=== PATIENT | female | born 1955 ===

== ENCOUNTER 2020-03-07 14:24 | Outpatient (REF) | payer OTHER, SELFPAY | END 2020-03-07 14:25 | disposition home or self-care (01) | LOC: HO.LAB 14:24 | PROVIDERS: Visit Provider Internal Medicine | DX: Z20.828 Contact with and (suspected) exposure to other viral communicable diseases (principal) | CPT/HCPCS: 87635 ==

== ENCOUNTER 2020-04-08 08:48 | Outpatient (REF) | payer OTHER, SELFPAY ==
[2020-04-08 09:18] LABS: MANUAL DIFF FLAG NO
[2020-04-08 09:19] LABS: Basophils Percent Auto 0.9 % (0-2); Eosinophils Absolute Auto 0.1 X10*3/uL (0.0-0.4); Eosinophils Percent Auto 1.2 % (0-4); Hemoglobin 12.5 g/dl (12.0-16.0); Imm Gran Abs Auto 0.01 X10*3/uL (0.00-0.03); Imm Gran Pct Auto 0.2 % (0.0-0.4); Lymphocytes Percent Auto 45.9 % (20-40); Mean Corpuscular HGB Conc 32.9 g/dl (31.0-35.0); Mean Corpuscular Hemoglobin 30.3 pg (27.0-33.0); Mean Platelet Volume 10.6 fL (9.4-12.3); Monocytes Absolute Auto 0.3 X10*3/uL (0.1-1.2); Neutrophils Percent Auto 45.8 % (45-73); Platelet Count 280 X10*3/uL (160-400); Red Blood Count 4.13 X10*6/uL (4.20-5.50); Red Cell Distribution Width 13.4 % (11.0-16.0); White Blood Count 4.3 X10*3/uL (4.8-10.8)
[2020-04-08 09:45] LABS: Alanine Aminotransferase 27 U/L (0-31); Albumin Level 4.4 g/dL (3.5-5.0); Alkaline Phosphatase 103 U/L (39-117); Anion Gap 13 (12-20); Aspartate Amino Transferase 23 U/L (5-31); Bilirubin Total 0.3 mg/dL (0.0-1.0); Blood Urea Nitrogen 19 mg/dL (9-16); Carbon Dioxide 24 mmol/L (22-29); Chloride 105 mmol/L (96-108); Cholesterol 226 mg/dL; Estimated Glomerular Filt Rate 55; Glucose Fasting 109 mg/dL (60-99); HDL Cholesterol 57 mg/dL; LDL Cholesterol Calculated 158 mg/dl; Potassium 4.6 mmol/l (3.3-5.1); Sodium 137 mmol/L (135-145); Total Protein 7.8 g/dL (6.5-8.0); Triglycerides 59 mg/dL
== END 2020-04-08 08:49 | disposition home or self-care (01) ==
LOC: HO.LAB 08:48
PROVIDERS: Visit Provider Internal Medicine
DX: E78.00 Pure hypercholesterolemia, unspecified (principal); D70.9 Neutropenia, unspecified
CPT/HCPCS: 36415; 80053; 80061; 85025

== ENCOUNTER 2020-07-21 11:56 | Outpatient (REF) | payer OTHER, SELFPAY ==
--- NOTE | ~2020-07-21 | MM_ITS ---
EXAMINATION: MM SCREENING DIGITAL BREAST TOMOSYNTHESIS, BILATERAL CLINICAL INFORMATION: Screening. Asymptomatic. The lifetime risk of breast cancer based on the Tyrer-Cuzick Model is 8%. COMPARISON: Mammography: 01/08/2019, 10/04/2017, 07/06/2016 TECHNIQUE: Digital breast tomosynthesis is performed in both the craniocaudal and mediolateral oblique views along with computer-aided detection (CAD). Synthesized 2D images are generated from the tomosynthesis. FINDINGS: There are scattered areas of fibroglandular density (ACR BI-RADS breast composition Category b). There are no significant masses, abnormal calcifications, or other abnormalities. Background stromal densities are similar to prior studies. No developing density. The axilla and skin contours are unremarkable. No significant changes. MM/MM tomosynthesis screening BI IMPRESSION: No mammographic evidence of malignancy. ASSESSMENT: BI-RADS 1: Negative RECOMMENDATION: Routine annual mammography screening. This patient's information was entered into a reminder system with a target due date for their next mammogram.
== END 2020-07-21 11:57 | disposition home or self-care (01) ==
LOC: HO.MAMMO 11:56
PROVIDERS: PCP Internal Medicine; Visit Provider Internal Medicine
DX: Z12.31 Encounter for screening mammogram for malignant neoplasm of breast (principal)
CPT/HCPCS: 77063; 77067

== ENCOUNTER 2021-01-23 09:23 | Outpatient (REF) | payer OTHER, SELFPAY | END 2021-01-23 09:24 | disposition home or self-care (01) | LOC: HO.LAB 09:23 | PROVIDERS: PCP Internal Medicine; Visit Provider Internal Medicine | DX: Z20.822 Contact with and (suspected) exposure to COVID-19 (principal) | CPT/HCPCS: C9803; U0003; U0005 ==

== ENCOUNTER 2021-05-30 08:10 | Outpatient (REF) | payer MEDICARE, MEDICAID, SELFPAY ==
[2021-05-30 09:16] LABS: Alanine Aminotransferase 23 U/L (0-31); Albumin Level 4.3 g/dL (3.5-5.0); Alkaline Phosphatase 96 U/L (39-117); Anion Gap 13 (12-20); Aspartate Amino Transferase 19 U/L (5-31); Bilirubin Total 0.4 mg/dL (0.0-1.0); Blood Urea Nitrogen 11 mg/dL (9-16); Calcium 10.1 mg/dL (8.4-10.2); Carbon Dioxide 26 mmol/L (22-29); Chloride 108 mmol/L (96-108); Cholesterol 241 mg/dL; Estimated Glomerular Filt Rate 49; Glucose Fasting 125 mg/dL (60-99); HDL Cholesterol 61 mg/dL; LDL Cholesterol Calculated 164 mg/dl; Potassium 5.1 mmol/L (3.3-5.1); Sodium 142 mmol/L (135-145); Total Protein 7.8 g/dL (6.5-8.0); Triglycerides 84 mg/dL
== END 2021-05-30 08:11 | disposition home or self-care (01) ==
LOC: HO.LAB 08:10
PROVIDERS: PCP Internal Medicine; Visit Provider Internal Medicine
DX: E78.5 Hyperlipidemia, unspecified (principal)
CPT/HCPCS: 36415; 80053; 80061

== ENCOUNTER → 2021-08-28 13:19 | Outpatient (BNVA) | payer MEDICARE, MEDICAID, SELFPAY | PROVIDERS: PCP Internal Medicine; Referring Provider Internal Medicine; Visit Provider Nurse Practitioner Family | DX: Z12.11 Encounter for screening for malignant neoplasm of colon (principal); K59.00 Constipation, unspecified | CPT/HCPCS: 99202 ==

== ENCOUNTER 2021-09-04 13:57 | Outpatient (REF) | payer MEDICARE, MEDICAID, SELFPAY ==
--- NOTE | ~2021-09-04 | MM_ITS ---
EXAMINATION: MM SCREENING DIGITAL BREAST TOMOSYNTHESIS, BILATERAL CLINICAL INFORMATION: Screening. Asymptomatic. Remote prior reduction mammoplasty, 2008. The lifetime risk of breast cancer based on the Tyrer-Cuzick Model is 5%. COMPARISON: Mammography: 07/21/2020, 01/08/2019, 10/04/2017 TECHNIQUE: Digital breast tomosynthesis is performed in both the craniocaudal and mediolateral oblique views along with computer-aided detection (CAD). Synthesized 2D images are generated from the tomosynthesis. FINDINGS: There are scattered areas of fibroglandular density (ACR BI-RADS breast composition Category b). Fine fibronodular parenchymal pattern is stable. There is no developing density. No significant mass or architectural abnormality or abnormal calcifications. The axilla and skin contours are unremarkable. No significant changes. MM/MM tomosynthesis screening BI IMPRESSION: No mammographic evidence of malignancy. ASSESSMENT: BI-RADS 1: Negative RECOMMENDATION: Routine annual mammography screening. This patient's information was entered into a reminder system with a target due date for their next mammogram.
--- NOTE | ~2021-09-04 | MM_ITS ---
EXAMINATION: BONE DENSITOMETRY CLINICAL INDICATION: Menopause. COMPARISON: None (current study represents initial baseline exam). TECHNIQUE: Using a Eventials DXA System (software version: 13.1) manufactured by [employer], dual-energy x-ray absorptiometry was performed of the lumbar spine and left hip. The images are of good technical quality. Summary results are attached. FINDINGS: AP SPINE L1-L2 (excluding L3 and L4): The data of L1-L4 has been changed to exclude the L3 and L4 vertebral bodies because degenerative changes at these levels may cause overestimation of the lumbar spine density. BMD 0.958 g/cm2, Z-score 0.8, T-score -1.7, osteopenia. LEFT FEMUR, NECK: BMD 0.615 g/cm2, Z-score -2.0, T-score -3.0, osteoporosis. LEFT FEMUR, TOTAL: BMD 0.729 g/cm2, Z-score -1.5, T-score -2.2, osteopenia. IDENTIFIED RISK FACTORS: Early menopause, hysterectomy, bilateral oophorectomy, secondary osteoporosis. HISTORY OF FRACTURE: None listed. MEDICATIONS: Vitamin D. MM/XR DEXA axial skeleton IMPRESSION: 1. DIAGNOSIS: Osteoporosis based on the lowest T-score value of -3.0 in the femoral neck applying World Health Organization criteria. 2. 10-YEAR FRACTURE RISK PREDICTION, FRAX: According to the guidelines, FRAX calculation should only be performed on patients in the osteopenia bone density category. Therefore, FRAX was not performed on this patient. 3. Treatment Recommendations: NOF guidelines recommend consideration for treatment in postmenopausal women and men age 50 and older presenting with the following: -A hip or vertebral (clinical or morphometric) fracture. -T-score less than or equal to -2.5 at the femoral neck or spine after appropriate evaluation to exclude secondary causes. -Low bone mass at the hip or spine and a 10-year fracture probability by FRAX of greater than or equal to 3% for hip fracture or greater than or equal to 20% for major osteoporotic fracture based on the [place] adapted WHO algorithm. 4. Other Recommendations: All treatment decisions require clinical judgment and consideration of individual patient factors, including patient preferences, comorbidities, previous drug use, risk factors not captured in the FRAX model (e.g. frailty, falls, vitamin D deficiency, increased bone turnover, interval significant decline in bone density) and possible under or overestimation of fracture risk by FRAX. Additional medical evaluation for secondary cause of low bone mineral density may be appropriate. FUTURE SCAN RECOMMENDATION: People with diagnosed cases of osteoporosis or at high risk for fracture should have regular bone mineral density tests. For patients eligible for Medicare, routine testing is allowed once every 2 years. The testing frequency can be increased to one year for patients who have rapidly progressing disease, those who are receiving or discontinuing medical therapy to restore bone mass, or have additional risk factors.
== END 2021-09-04 13:58 | disposition home or self-care (01) ==
LOC: HO.MAMMO 13:57
PROVIDERS: PCP Internal Medicine; Visit Provider Internal Medicine
DX: Z12.31 Encounter for screening mammogram for malignant neoplasm of breast (principal); Z13.820 Encounter for screening for osteoporosis; Z78.0 Asymptomatic menopausal state; M81.0 Age-related osteoporosis without current pathological fracture
CPT/HCPCS: 77063; 77067; 77080

== ENCOUNTER 2021-11-12 09:08 | Outpatient (REF) | payer MEDICARE, MEDICAID, SELFPAY ==
[2021-11-12 10:15] LABS: Alanine Aminotransferase 20 U/L (0-31); Albumin Level 4.1 g/dL (3.5-5.0); Alkaline Phosphatase 87 U/L (39-117); Anion Gap 13 (12-20); Aspartate Amino Transferase 19 U/L (5-31); Bilirubin Total 0.4 mg/dL (0.0-1.0); Blood Urea Nitrogen 17 mg/dL (9-16); Calcium 9.3 mg/dL (8.4-10.2); Carbon Dioxide 24 mmol/L (22-29); Chloride 109 mmol/L (96-108); Cholesterol 223 mg/dL; Estimated Glomerular Filt Rate 42; Glucose Fasting 111 mg/dL (60-99); HDL Cholesterol 51 mg/dL; LDL Cholesterol Calculated 160 mg/dl; Potassium 4.8 mmol/L (3.3-5.1); Sodium 141 mmol/L (135-145); Total Protein 7.3 g/dL (6.5-8.0); Triglycerides 61 mg/dL
== END 2021-11-12 09:09 | disposition home or self-care (01) ==
LOC: HO.LAB 09:08
PROVIDERS: PCP Internal Medicine; Visit Provider Internal Medicine
DX: E78.5 Hyperlipidemia, unspecified (principal)
CPT/HCPCS: 36415; 80053; 80061

== ENCOUNTER 2021-12-10 10:51 | Day surgery (SDC) | payer MEDICARE, MEDICAID, SELFPAY ==
[2021-12-04 14:36] VITALS: BMI 36.1
--- NOTE | 2021-12-07 10:33 | HO.ANESPROP2 ---
Documented by User: Alisa Arauz NP 12/07/21 10:33 HPI - Anesthesia Eval Consult details Narrative: 66yo F for Colonoscopy PMFSH Active Problems Active Problems: All Active Problems (Updated 11/13/21 @ 16:14 by Trudi Carlos MD) BMI 36.0-36.9,adult (Acute) Osteoporosis (Acute) Physical exam (Acute) Postmenopausal (Acute) Screen for colon cancer (Acute) Shortness of breath (Acute) Venous (peripheral) insufficiency (Acute) Impaired glucose tolerance (Acute) Dyslipidemia (Acute) Past Medical History Medical History (Updated 11/13/21 @ 16:14 by Trudi Carlos MD) Dyslipidemia Impaired glucose tolerance Osteoporosis Physical exam Postmenopausal Screen for colon cancer Shortness of breath Venous (peripheral) insufficiency Family History Family History Father Diabetes Mother Diabetes Hypertension Paternal Grandmother Breast cancer Paternal Aunt Breast cancer Brother Primary cancer of bone marrow Surgical History Surgical History (Updated 12/04/21 @ 14:18 by Linda Victoria RN) History of bilateral breast reduction surgery History of total abdominal hysterectomy and bilateral salpingo-oophorectomy Hx of colonoscopy Social History Social History Housing: Apartment Alcohol intake: current Alcohol intake frequency: holidays/special occasions only Alcohol type: wine Patient Tobacco Use Status: Former Tobacco user Quit Date: >20 yr ago Tobacco use type: Cigarette e-Cigarette/Vaping Use: Never Used Second Hand Smoke Exposure: No Use of substances other than those prescribed or required for medical reasons: No Have you been hit, kicked, punched, or otherwise hurt by someone within the past year? If so, by whom?: No Are you DNR?: No Advance Directives: No Advance Directives Information Provided: Yes (brochure mailed) Advance Directives on File: No Recently lost weight without trying: No Eating poorly because of decreased appetite: No Nutrition Risks: No Nutritional Risk service: No Current occupational status: employed Current occupational exposures/hazards: No Cognitive needs: No Hearing needs: No Vision needs: No Meds Allergies Allergy/AdvReac Type Severity Reaction Status Date / Time No Known Allergies Allergy Mild NKA Verified 11/13/21 15:59 Exam Exam Date and Time: December 07, 2021 1033 Height,Weight and Vital Signs: Height 5 ft 1 in Weight 86.636 kg Assessment and Plan Assessment Anesthesia Assessment: Chart Reviewed Documented by User: Soraida López MD 12/10/21 11:43 PMFSH Past Medical History Medical History (Updated 11/13/21 @ 16:14 by Trudi Carlos MD) Dyslipidemia Impaired glucose tolerance Osteoporosis Physical exam Postmenopausal Screen for colon cancer Shortness of breath Venous (peripheral) insufficiency Family History Family History Father Diabetes Mother Diabetes Hypertension Paternal Grandmother Breast cancer Paternal Aunt Breast cancer Brother Primary cancer of bone marrow Family history of problems with anesthesia: No Surgical History Surgical History (Updated 12/04/21 @ 14:18 by Linda Victoria RN) History of bilateral breast reduction surgery History of total abdominal hysterectomy and bilateral salpingo-oophorectomy Hx of colonoscopy History of Problems with Anesthesia: No Social History Social History Housing: Apartment Alcohol intake: current Alcohol intake frequency: holidays/special occasions only Alcohol type: wine Patient Tobacco Use Status: Former Tobacco user Quit Date: >20 yr ago Tobacco use type: Cigarette e-Cigarette/Vaping Use: Never Used Second Hand Smoke Exposure: No Use of substances other than those prescribed or required for medical reasons: No Have you been hit, kicked, punched, or otherwise hurt by someone within the past year? If so, by whom?: No Are you DNR?: No Advance Directives: No Advance Directives Information Provided: Yes (brochure mailed) Advance Directives on File: No Recently lost weight without trying: No Eating poorly because of decreased appetite: No Nutrition Risks: No Nutritional Risk service: No Current occupational status: employed Current occupational exposures/hazards: No Cognitive needs: No Hearing needs: No Vision needs: No Meds Allergies Allergy/AdvReac Type Severity Reaction Status Date / Time No Known Allergies Allergy Mild NKA Verified 11/13/21 15:59 Exam Airway Mallampati Class: II (Implant top front on left) TM Dist: >3cm Neck ROM: Full Heart: rrr Lungs: cta Assessment and Plan Assessment Anesthesia Assessment: Anesthesia Plan Discussed and Chart Reviewed Final Anesthetic Review Family History of Problems with Anesthesia: No History of Problems with Anesthesia: No NPO: Yes ASA Class: II Final Preanesthetic Review: No Changes in Pt Med Stat, Meds/Allgs Chart Reviewed and Consent Obtained/Reviewed Patient Risk: Intermediate Procedure Risk: Intermediate Anesthetic Plan Anesthetic Plan: MAC: Disposition: Standard PACU
[2021-12-10 11:52] VITALS: BP 141/76; PULSE 90; RESP 18; TEMP 36.7; O2SAT 99
[2021-12-10] MEDS: Lactated Ringers 1,000 ML 50 ML IVCONT (11:54)
--- NOTE | 2021-12-10 12:00 | MHC.SHP ---
Pre-Procedural Eval Section A Date of Service: 12/10/21 The patient is an INPATIENT: No The History & Physical has been completed within 30 days and I have reviewed it.: No Section B Chief Complaint: screening Details of Present Illness: Colon cancer screening Relevant Family History (Specify if Yes): No Relevant Social History: Tobacco Use (Past smoker) Present Medications: see Short Stay Collaborative assessment Medical History: Significant History (Dyslipidemia Impaired glucose tolerance Physical exam Postmenopausal Screen for colon cancer Shortness of breath Venous (peripheral) insufficiency) History of Previous Operations: Relevant previous surgery/procedure and date(s) (History of bilateral breast reduction surgery History of total abdominal hysterectomy and bilateral salpingo-oophorectomy Hx of colonoscopy) Allergies: Allergies Allergy/AdvReac Type Severity Reaction Status Date / Time No Known Allergies Allergy Mild NKA Verified 11/13/21 15:59 Review of Systems Sugical H&P ROS: Negative: Constitution, Cardiovascular, Respiratory and Gastrointestinal Exam Surgical H&P Exam: Normal: Heart, Normal: Lungs, Normal: Extremities and Normal: Abdomen Plan Diagnosis/Plan: Unchanged I have reviewed the history and physical and performed a pertinent physical examination on my patient. No changes have occurred unless specified.
--- NOTE | 2021-12-10 12:52 | PM.OP ---
Brief Operative Note Date of Service: 12/10/21 Pre-op diagnosis: Colon cancer screen Post-op diagnosis: other (Colon polyps, cecal AVM, diverticulosis, hemorrhoids, ) Procedure: COLONOSCOPY TILL CECUM WITH BIOPSIES AND SNARE POLYPECTOMY Consent: Indications for the procedure and potential complications of bleeding, perforation, reaction to medications and missed diagnosis were discussed with the patient and informed consent was obtained. Instrument: Olympus PCF H 190 L variable stiffness pediatric colonoscope Monitoring: Vital signs and clinical assessment, intermittent blood pressure monitoring, continuous EKG monitoring, Pulse oximetry and Carbon Dioxide monitoring were done throughout the procedure. Colon withdrawl time was 22 minutes. Procedure: The patient was placed in the left lateral decubitis position and pre-procedure medications were administered. After a digital rectal examination of the ano-rectum, the video colonoscope was inserted into the rectum and advanced through the colon to the cecum. The colonoscope was slowly withdrawn in a retrograde panoramic fashion and the colon mucosa was carefully examined including a retroflexed view of the rectum. Findings and interventions are described below. Procedure Difficulty: Without difficulty Findings: Terminal Ileum: Not evaluated Cecum: A 4-5 mm sessile polyp removed with a cold bx. A 1.5 cms non-bleeding AVM Ascending Colon: A 1.8 to 2 cms sessile polyp overlying a fold in the proximal AC removed with a hot snare. Transverse Colon: Normal Descending Colon: Moderate diverticulosis Sigmoid Colon: A 5-6 mm sessile polyp removed with a cold bx. Moderate diverticulosis Rectum: Normal Ano-rectum: Small internal hemorrhoids Colon preparation: Good Impression and Post Procedure Diagnosis: Colonoscopy Findings: Two small and one medium sized polyps removed Moderate diverticulosis seen in the left colon Small hemorrhoids on retroflexed exam. Plan: Await pathology results Patient has an appointment on 12/24/21 in the GI Clinic with Isela Rivera FNP-BC. Repeat Colonoscopy interval based on path results - in 3-5 years if polyps are adenomatous and 10 years if polyps are hyperplastic. Above findings were reviewed with the patient and colon polyps and diverticulosis handouts were given in the discharge area Surgeon: Greg Whtie MD Anesthesia: MAC (Dr Menard) Was an Supervisor Vacuum Metalizing used for this Procedure?: Yes Supervisor Vacuum Metalizing: Yohana Cohen Estimated blood loss (mL): 0 Pathology: other (A. Ascending colon polyp B. cecal polyp C. sigmoid polyp) Condition: stable Disposition: PACU
[2021-12-10 12:53] VITALS: BP 107/98; PULSE 84; RESP 16; TEMP 36.8; O2SAT 96
--- NOTE | 2021-12-10 12:56 | W.PM.OPN ---
Operative Note Operative Note Date of Service: 12/10/21 Narrative: Pre-op diagnosis: Colon cancer screen Post-op diagnosis:?other (Colon polyps, cecal AVM, diverticulosis, hemorrhoids) Procedure: COLONOSCOPY TILL CECUM WITH BIOPSIES AND SNARE POLYPECTOMY Consent: Indications for the procedure and potential complications of bleeding, perforation, reaction to medications and missed diagnosis were discussed with the patient and informed consent was obtained. Instrument: Olympus PCF H 190 L variable stiffness pediatric colonoscope Monitoring: Vital signs and clinical assessment, intermittent blood pressure monitoring, continuous EKG monitoring, Pulse oximetry and Carbon Dioxide monitoring were done throughout the procedure. Colon withdrawl time was 22 minutes. Procedure: The patient was placed in the left lateral decubitis position and pre-procedure medications were administered. After a digital rectal examination of the ano-rectum, the video colonoscope was inserted into the rectum and advanced through the colon to the cecum. The colonoscope was slowly withdrawn in a retrograde panoramic fashion and the colon mucosa was carefully examined including a retroflexed view of the rectum. Findings and interventions are described below. Procedure Difficulty: Without difficulty Findings: Terminal Ileum: Not evaluated Cecum:? A 4-5 mm sessile polyp removed with a cold bx. A 1.5 cms non-bleeding AVM Ascending Colon:? A 1.8 to 2 cms sessile polyp overlying a fold in the proximal AC removed with a hot snare. Transverse Colon:? Normal Descending Colon:? Moderate diverticulosis Sigmoid Colon:? A 5-6 mm sessile polyp removed with a cold bx. Moderate diverticulosis Rectum:? Normal Ano-rectum:? Small internal hemorrhoids Colon preparation:? Good? Impression and Post Procedure Diagnosis: Colonoscopy Findings: Two small and one medium sized polyps removed Moderate diverticulosis seen in the left colon Small hemorrhoids on retroflexed exam. Plan: Await pathology results Patient has an appointment on 12/24/21 in the GI Clinic with ? Isela Rivera, [facility]. Repeat Colonoscopy interval based on path results - in 3-5 years if polyps are adenomatous and 10 years if polyps are hyperplastic. Above findings were reviewed with the patient and colon polyps and diverticulosis handouts were given in the discharge area Surgeon: Greg White MD Anesthesia:?MAC (Dr Menard) Was an Learning And Development Director used for this Procedure?:?Yes Learning And Development Director:?Yohana Cohen Estimated blood loss (mL):?0 Pathology:?other (A. Ascending colon polyp? B. cecal polyp? C. sigmoid polyp) Condition:?stable Disposition:?PACU
[2021-12-10 13:08] VITALS: BP 121/70; PULSE 75; RESP 16; O2SAT 98
[2021-12-10 13:23] VITALS: BP 134/70; PULSE 78; RESP 16; O2SAT 96
[2021-12-10 13:38] VITALS: BP 135/68; PULSE 78; RESP 16; TEMP 36.8; O2SAT 97
== END 2021-12-10 14:21 | disposition home or self-care (01) ==
PROVIDERS: PCP Internal Medicine; Visit Provider Internal Medicine Gastroenterology
PROC: 0DJD8ZZ Inspection of Lower Intestinal Tract, Via Natural or Artificial Opening Endoscopic (ICD-10-PCS; CPT 45378; principal; 2021-12-10 12:00)
DX: Z12.11 Encounter for screening for malignant neoplasm of colon (principal); D12.0 Benign neoplasm of cecum; D12.2 Benign neoplasm of ascending colon; D12.5 Benign neoplasm of sigmoid colon; K57.30 Diverticulosis of large intestine without perforation or abscess without bleeding; K64.8 Other hemorrhoids; K55.20 Angiodysplasia of colon without hemorrhage; K59.00 Constipation, unspecified; I87.2 Venous insufficiency (chronic) (peripheral); E78.5 Hyperlipidemia, unspecified; R73.02 Impaired glucose tolerance (oral); R06.02 Shortness of breath; Z87.891 Personal history of nicotine dependence
CPT/HCPCS: 45385; 45380; 88305

== ENCOUNTER → 2021-12-24 08:04 | Outpatient (BNVA) | payer MEDICARE, MEDICAID, SELFPAY | PROVIDERS: PCP Internal Medicine; Referring Provider Internal Medicine; Visit Provider Nurse Practitioner Family | DX: D36.9 Benign neoplasm, unspecified site (principal); K57.90 Diverticulosis of intestine, part unspecified, without perforation or abscess without bleeding; K59.00 Constipation, unspecified; Z98.890 Other specified postprocedural states | CPT/HCPCS: 99212 ==

== ENCOUNTER 2022-01-15 10:01 | Outpatient (REF) | payer MEDICARE, MEDICAID, SELFPAY ==
--- NOTE | ~2022-01-15 | US_ITS ---
EXAMINATION: US VENOUS ULTRASOUND WITH DOPPLER LOWER EXTREMITY, LEFT CLINICAL INFORMATION: Pain in the left leg COMPARISON: None TECHNIQUE: Ultrasound of the deep veins is performed from the hip to the calf with compression sonography and color and pulse Doppler assessment. Spectral analysis with color-flow imaging is performed. FINDINGS: There is normal venous compression and respiratory variation and augmented flow. The visualized left common femoral vein, superficial femoral vein, profunda femoral vein, popliteal vein, and the trifurcation region shows no evidence of deep venous thrombosis. There is no significant popliteal fossa cyst. If the patient's symptoms persist, followup ultrasound in 5 days 7 days might be of value to exclude proximal propagation from a non-visualized calf vein. US/US venous duplex LE IMPRESSION: No DVT demonstrated in the left lower extremity.
--- NOTE | ~2022-01-15 | XR_ITS ---
EXAMINATION: XR KNEE, RIGHT XR KNEE, LEFT CLINICAL INFORMATION: Bilateral knee pain. COMPARISON: 07/21/2007 of the left knee. TECHNIQUE: 3 views of each knee. FINDINGS: RIGHT KNEE: There is no evidence of acute fracture or dislocation of the right knee. No right knee effusion is appreciated. There is some spurring without significant joint space narrowing about the medial joint space. There is prominent spurring about the patellofemoral joint with what appears to be some mild narrowing of the lateral facet. LEFT KNEE: Views of the left knee demonstrate spurring of the medial joint space compartment without significant joint space narrowing. There is some spurring at the patellofemoral joint without significant joint space narrowing appreciated. There is a small amount of suprapatellar fluid present. XR/XR knee LT 3V IMPRESSION: Degenerative change of the knees bilaterally which appear to be mild about the medial joint space compartments and more significant at the patellofemoral joints.
--- NOTE | ~2022-01-15 | XR_ITS ---
EXAMINATION: XR KNEE, RIGHT XR KNEE, LEFT CLINICAL INFORMATION: Bilateral knee pain. COMPARISON: 07/21/2007 of the left knee. TECHNIQUE: 3 views of each knee. FINDINGS: RIGHT KNEE: There is no evidence of acute fracture or dislocation of the right knee. No right knee effusion is appreciated. There is some spurring without significant joint space narrowing about the medial joint space. There is prominent spurring about the patellofemoral joint with what appears to be some mild narrowing of the lateral facet. LEFT KNEE: Views of the left knee demonstrate spurring of the medial joint space compartment without significant joint space narrowing. There is some spurring at the patellofemoral joint without significant joint space narrowing appreciated. There is a small amount of suprapatellar fluid present. XR/XR knee RT 3V IMPRESSION: Degenerative change of the knees bilaterally which appear to be mild about the medial joint space compartments and more significant at the patellofemoral joints.
--- NOTE | ~2022-01-15 | XR_ITS ---
EXAMINATION: XR LUMBOSACRAL SPINE CLINICAL INFORMATION: Low back pain. COMPARISON: None TECHNIQUE: Three views of the lumbosacral spine. FINDINGS: There are 5 nonrib bearing lumbar vertebrae. No acute fracture, spondylolisthesis, or spondylolysis is identified. There is some disc space narrowing seen at the L4-L5 and L5-S1 levels. There is sclerosis with some degree of facet arthropathy seen at the L5-S1 level bilaterally and to a milder extent involving the right L4-L5 facets. Sacroiliac joints appear unremarkable. There is mild anterior spurring at the L3-L4 levels. XR/XR lumbar spine 2-3V IMPRESSION: Lumbar spondylosis without evidence of acute fracture, spondylolisthesis, or spondylolysis.
== END 2022-01-15 10:02 | disposition home or self-care (01) ==
LOC: HO.US 10:01
PROVIDERS: PCP Internal Medicine; Visit Provider Internal Medicine
DX: M25.562 Pain in left knee (principal); M79.605 Pain in left leg; M25.561 Pain in right knee; M54.50 Low back pain, unspecified
CPT/HCPCS: 72100; 73562; 93971

== ENCOUNTER → 2022-02-28 15:54 | Outpatient (BNVA) | payer MEDICARE, MEDICAID, SELFPAY | PROVIDERS: PCP Internal Medicine; Visit Provider Internal Medicine Endocrinology, Diabetes & Metabolism | DX: M81.0 Age-related osteoporosis without current pathological fracture (principal) | CPT/HCPCS: 99202 ==

== ENCOUNTER 2022-03-14 09:17 | Outpatient (REF) | payer MEDICARE, MEDICAID, SELFPAY ==
[2022-03-14 10:31] LABS: Phosphorus 2.8 mg/dL (2.7-4.5)
[2022-03-14 10:57] LABS: Free T4 (Free Thyroxine) 1.06 ng/dL (0.71-1.85); Thyroid Stimulating Hormone 1.53 uIU/mL (0.32-4.0); Vitamin D 25-OH Total 31.5 ng/mL (>30)
[2022-03-14 11:22] LABS: Creatinine, mg/dL 88.64
[2022-03-14 12:10] LABS: Creatinine, 24Hr Urine 1.2 G/Day (1.0-2.0); Total Volume 24 Hour Urine 1325 mL
[2022-03-16 17:23] LABS: Calcium, 24 Hr Urine 205 mg/24 h; Calcium/Creatinine Ratio 165 mg/g creat (30-275); Creatinine 24Hr Urine 1.25 g/24 h (0.50-2.15)
[2022-03-19 18:11] LABS: Prot Elec - Albumin 3.9 g/dL (3.8-4.8); Prot Elec - Alpha1 0.3 g/dL (0.2-0.3); Prot Elec - Alpha2 0.7 g/dL (0.5-0.9); Prot Elec - Beta 1 0.4 g/dL (0.4-0.6); Prot Elec - Beta 2 0.4 g/dL (0.2-0.5); Prot Elec - Gamma 1.3 g/dL (0.8-1.7); Prot Elec - Total Protein 7.1 g/dL (6.1-8.1)
== END 2022-03-14 09:18 | disposition home or self-care (01) ==
LOC: HO.LAB 09:17
PROVIDERS: PCP Internal Medicine; Visit Provider Internal Medicine Endocrinology, Diabetes & Metabolism
DX: M81.0 Age-related osteoporosis without current pathological fracture (principal)
CPT/HCPCS: 82306; 82340; 82570; 84100; 84165; 84439; 84443; 86335

== ENCOUNTER 2022-07-03 08:07 | Outpatient (REF) | payer MEDICARE, MEDICAID, SELFPAY ==
[2022-07-03 09:22] LABS: Alanine Aminotransferase 23 U/L (0-31); Albumin Level 4.2 g/dL (3.5-5.0); Alkaline Phosphatase 95 U/L (39-117); Anion Gap 13 (12-20); Aspartate Amino Transferase 21 U/L (5-31); Bilirubin Total 0.3 mg/dL (0.0-1.0); Blood Urea Nitrogen 15 mg/dL (9-16); Calcium 9.4 mg/dL (8.4-10.2); Carbon Dioxide 26 mmol/L (22-29); Chloride 109 mmol/L (96-108); Cholesterol 223 mg/dL; Estimated Glomerular Filt Rate 57; Glucose Fasting 134 mg/dL (60-99); HDL Cholesterol 56 mg/dL; LDL Cholesterol Calculated 154 mg/dl; Potassium 4.7 mmol/L (3.3-5.1); Sodium 143 mmol/L (135-145); Total Protein 7.4 g/dL (6.5-8.0); Triglycerides 69 mg/dL
[2022-07-03 09:40] LABS: TSH reflex Free T4 1.81 uIU/mL (0.32-4.0)
== END 2022-07-03 08:08 | disposition home or self-care (01) ==
LOC: HO.LAB 08:07
PROVIDERS: Absent Provider Internal Medicine Endocrinology, Diabetes & Metabolism; PCP Internal Medicine; Visit Provider Internal Medicine
DX: Z00.00 Encounter for general adult medical examination without abnormal findings (principal); E78.5 Hyperlipidemia, unspecified; Z78.0 Asymptomatic menopausal state
CPT/HCPCS: 36415; 80053; 80061; 84443

== ENCOUNTER → 2022-08-23 13:12 | Outpatient (BNVA) | payer MEDICARE, MEDICAID, SELFPAY | PROVIDERS: PCP Internal Medicine; Visit Provider Internal Medicine Endocrinology, Diabetes & Metabolism | DX: M81.0 Age-related osteoporosis without current pathological fracture (principal) | CPT/HCPCS: 99212 ==

== ENCOUNTER 2022-09-09 08:17 | Outpatient (REF) | payer MEDICARE, MEDICAID, SELFPAY ==
[2022-09-09 09:15] LABS: Alanine Aminotransferase 24 U/L (0-31); Alkaline Phosphatase 94 U/L (39-117); Anion Gap 10 (12-20); Aspartate Amino Transferase 18 U/L (5-31); Bilirubin Total 0.3 mg/dL (0.0-1.0); Blood Urea Nitrogen 13 mg/dL (9-16); Calcium 9.1 mg/dL (8.4-10.2); Carbon Dioxide 26 mmol/L (22-29); Chloride 111 mmol/L (96-108); Estimated Glomerular Filt Rate 57; Glucose Fasting 106 mg/dL (60-99); Potassium 4.9 mmol/L (3.3-5.1); Sodium 142 mmol/L (135-145); Total Protein 7.1 g/dL (6.5-8.0)
== END 2022-09-09 08:18 | disposition home or self-care (01) ==
LOC: HO.LAB 08:17
PROVIDERS: PCP Internal Medicine; Visit Provider Internal Medicine
DX: R73.02 Impaired glucose tolerance (oral) (principal)
CPT/HCPCS: 36415; 80053

== ENCOUNTER 2022-11-09 10:40 | Outpatient (REF) | payer MEDICARE, MEDICAID, SELFPAY ==
--- NOTE | ~2022-11-09 | MM_ITS ---
EXAMINATION: MM SCREENING DIGITAL BREAST TOMOSYNTHESIS, BILATERAL CLINICAL INFORMATION: Screening. Asymptomatic. The lifetime risk of breast cancer based on the Tyrer-Cuzick Model is 6%. COMPARISON: Mammography: 09/04/2021, 07/21/2020, 01/08/2019 TECHNIQUE: Digital breast tomosynthesis is performed in both the craniocaudal and mediolateral oblique views along with computer-aided detection (CAD). Synthesized 2D images are generated from the tomosynthesis. Additional right MLO view is provided. FINDINGS: There are scattered areas of fibroglandular density (ACR BI-RADS breast composition Category b). Parenchymal pattern is similar to prior exams and there is no architectural abnormality or developing density. There is a fine fibronodular pattern with no significant masses, abnormal calcifications, or other abnormalities. The axilla and skin contours are unremarkable. There are no significant changes from prior studies. MM/MM tomosynthesis screening BI IMPRESSION: No mammographic evidence of malignancy. ASSESSMENT: BI-RADS 2: Benign RECOMMENDATION: Routine annual mammography screening. This patient's information was entered into a reminder system with a target due date for their next mammogram.
== END 2022-11-09 10:41 | disposition home or self-care (01) ==
LOC: HO.MAMMO 10:40
PROVIDERS: PCP Internal Medicine; Visit Provider Internal Medicine
DX: Z12.31 Encounter for screening mammogram for malignant neoplasm of breast (principal)
CPT/HCPCS: 77063; 77067

== ENCOUNTER 2022-12-20 12:37 | Outpatient (AMB) | payer MEDICARE, MEDICAID, SELFPAY ==
--- NOTE | 2022-12-20 12:44 | MHC.OFFVIS ---
Intake Vital Signs 12/20/22 12:47 Height 5 ft 1.23 in Weight 189 lb 2.506 oz BMI 35.5 BP 128/70 Pulse 73 Intake Visit Reasons: f/u osteoporosis Intake Note: Patient present for Osteoporosis follow up visit. Mapping Supervisor Required: Yes Mapping Supervisor Language: Armenian Allergies No Known Allergies Allergy (Mild, Verified 12/20/22 12:51) NKA HPI HPI Comments History of Present Illness Details 67 YO Female with ] is seen in consultation at the request of PCP for Osteoporosis. First diagnosed in 5 mos ago . No history of pathologic fracture or ONJ. Has several servings of dietary calcium per day in the form of b roccoli, cheese . Not Takes Calcium supplement Takes ? IU of Vitamin D daily. Denies ever using PPI, anticoagulant, antiepileptic or glucocorticoid medication. Does ot weight bearing exercise Fracture history: No Height loss: ? 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 UTD on dental cleanings and sees dentist every 6 months. No planned upcoming dental work or extractions. DXA dated :FINDINGS: AP SPINE L1-L2 (excluding L3 and L4):? The data of L1-L4 has been changed to exclude the L3 and L4 vertebral bodies because degenerative changes at these levels may cause overestimation of the lumbar spine density.? BMD 0.958 g/cm2, Z-score 0.8, T-score -1.7, osteopenia. LEFT FEMUR, NECK: BMD 0.615 g/cm2, Z-score -2.0, T-score -3.0, osteoporosis. LEFT FEMUR, TOTAL: BMD 0.729 g/cm2, Z-score -1.5, T-score -2.2, osteopenia. IDENTIFIED RISK FACTORS: Early menopause, hysterectomy, bilateral oophorectomy, secondary osteoporosis. HISTORY OF FRACTURE: None listed. MEDICATIONS: Vitamin D. MM/XR DEXA axial skeleton IMPRESSION: 1. DIAGNOSIS: Osteoporosis based on the lowest T-score value of -3.0 in the femoral neck applying World Health Organization criteria. Labs: [facility] Medical History Diverticulosis Dyslipidemia Impaired glucose tolerance Osteoporosis Physical exam Postmenopausal Screen for colon cancer Shortness of breath Tubular adenoma Venous (peripheral) insufficiency Surgical History History of bilateral breast reduction surgery History of total abdominal hysterectomy and bilateral salpingo-oophorectomy Hx of colonoscopy Family History Father Diabetes Mother Diabetes Hypertension Paternal Grandmother Breast cancer Paternal Aunt Breast cancer Brother Primary cancer of bone marrow Social History Housing: Apartment Alcohol intake: current Alcohol intake frequency: holidays/special occasions only Alcohol type: wine Patient Tobacco Use Status: Never used Tobacco e-Cigarette/Vaping Use: Never Used Second Hand Smoke Exposure: No service: No Current occupational status: unemployed Cognitive needs: No Hearing needs: No Vision needs: No Physical Exam Vital Signs: Last Vital Signs Pulse 73 12/20/22 12:47 BP 128/70 12/20/22 12:47 BMI result Body Mass Index 35.5 Assessment & Plan Assessment & Plan (1) Osteoporosis: Code(s): M81.0 - Age-related osteoporosis without current pathological fracture Plan: This is a 66-year-old female with history of osteoporosis. Secondary workup is negative Plan is to assure patient take 1200 mg of calcium and 2000-Iunits of vitamin-D 3 . I spoke to the patient and daughter extensively about use of pharmacologic therapy including oral or intravenous bisphosphonate or Prolia. Patient is not interested in going up pharmacologic therapy at present. She returned to the care of her primary care provider who can follow with serial bone densities and if significant decline or patient has fracture or patient decides to go on pharmacologic therapy cannot be initiated by primary care 0 referred back to endocrinology Coding Level of Care Code Est Pt Level 3 (45315) Diagnoses Osteoporosis M81.0
[2022-12-20 12:47] VITALS: BP 128/70; PULSE 73; BMI 35.5
== END 2022-12-20 14:19 | disposition home or self-care (01) ==
PROVIDERS: PCP Internal Medicine; Referring Provider Internal Medicine; Visit Provider Internal Medicine Endocrinology, Diabetes & Metabolism
DX: M81.0 Age-related osteoporosis without current pathological fracture (principal)
CPT/HCPCS: 99213

== ENCOUNTER → 2022-12-20 12:37 | Outpatient (BNVA) | payer MEDICARE, MEDICAID, SELFPAY | PROVIDERS: Visit Provider Internal Medicine Endocrinology, Diabetes & Metabolism | DX: M81.0 Age-related osteoporosis without current pathological fracture (principal) | CPT/HCPCS: 99212 ==

== ENCOUNTER 2023-05-27 14:03 | Outpatient (AMB) | payer MEDICARE, MEDICAID, SELFPAY ==
[2023-05-27 14:05] VITALS: BP 126/70; BMI 33.3
--- NOTE | 2023-05-27 14:05 | MHC.PC.OV ---
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 Accompanied by: Self / Same As Patient Allergies No Known Allergies Allergy (Mild, Verified 05/27/23 14:14) NKA Medication List - Last Reconciled 05/27/23 by Trudi Carlos MD No Known Home Meds Tobacco use date assessed: 05/27/23 Fall risk assessment: No Falls in past year Last assessed Fall Risk: 05/27/23 Dental Screening Dental Screen Date: 05/27/23 Did you have a dental visit in the last 12 months?: Yes Did you have a dental problem in the last 6 months where you did not have access to dental care?: No Was dental information given to patient?: Patient has dentist HPI HPI Comments History of Present Illness Details This is a 67-year-old female with obesity, venous insufficiency and lumbar pain that complains of easy bruising that has been present for years. She said her menstrual periods were regular. An episode of lumbar pain about 2 weeks ago with no previous injury that went away with [id number] Advil. The pain did not radiate to the legs. No leg numbness. No fever, bowel or bladder incontinence. She is obese with a BMI of 33.3 and is asking for medications to lose weight in which I told her that nothing is approved by insurance. That she has to do diet and exercise. Has venous insufficiency and would like to see vascular surgeon for it. No chest pain or shortness of breath. [facility] Medical History (Updated 05/27/23 @ 14:28 by Trudi Carlos MD) Class 1 obesity with body mass index (BMI) of 32.0 to 32.9 in adult Diverticulosis Tubular adenoma Osteoporosis Physical exam Postmenopausal Screen for colon cancer Shortness of breath Venous (peripheral) insufficiency Impaired glucose tolerance Dyslipidemia Surgical History Hx of colonoscopy History of bilateral breast reduction surgery History of total abdominal hysterectomy and bilateral salpingo-oophorectomy Family History Father Diabetes Mother Diabetes Hypertension Paternal Grandmother Breast cancer Paternal Aunt Breast cancer Brother Primary cancer of bone marrow Social History Housing: Apartment Alcohol intake: current Alcohol intake frequency: holidays/special occasions only Alcohol type: wine Patient Tobacco Use Status: Never used Tobacco e-Cigarette/Vaping Use: Never Used Second Hand Smoke Exposure: No service: No Current occupational status: unemployed Cognitive needs: No Hearing needs: No Vision needs: No Questionnaire PHQ-9 Over the last 2 weeks, how often have you been bothered by any of the following problems? 1. Little interest or pleasure in doing things: not at all 2. Feeling down, depressed, or hopeless: several days 3. Trouble falling or staying asleep, or sleeping too much: not at all 4. Feeling tired or having little energy: not at all 5. Poor appetite or overeating: several days 6. Feeling bad about yourself - or that you are a failure or have let yourself or your family down: not at all 7. Trouble concentrating on things, such as reading the newspaper or watching television: not at all 8. Moving or speaking so slowly that other people could have noticed. Or the opposite - being so fidgety or restless that you have been moving around a lot more than usual: not at all 9. Thoughts that you would be better off or of hurting yourself in some way: not at all Total score: 2 Depression Screening Interpretation: Negative Depression Screening Done: Yes 09753 - PHQ-9 Billing: Yes Source: Developed by Drs. Wilton Ricks, Shaila Erickson, Kristian Smith and colleagues, with an educational evangelina from [employer]. Thrive Questionnaire Date Thrive assessed: 05/27/23 I am a: Patient What is your living situation today?: I have a steady place to live Within the past 12 months, did the food you bought not last and you didn't have the money to get more?: Never true Within the past 12 months, did you worry whether your food would run out before you got money to buy more?: Never true Do you have trouble paying for medicines?: No Do you have trouble getting transportation to medical appointments?: No Do you have trouble paying your heating and electricity bill?: No Do you have trouble taking care of your child, family member or friend?: No Do you have trouble with day-to-day activities such as bathing, preparing meals, shopping, managing finances, etc.?: No Are you currently unemployed and looking for a job?: No Are you interested in more education?: No Please select the resources that you would like help with: None Currently or been in a relationship where the following occur: no concerns reported AUDIT C Alcohol Use Questionnaire (AUDIT-C) 1. How often do you have a drink containing alcohol?: Monthly or less 2. How many drinks containing alcohol do you have on a typical day when you are drinking?: 1 or 2 3. How often do you have six or more drinks on one occasion?: Never Total Score: 1 Score Reviewed/Action Taken: No REYES-7 AMB Questionnaire REYES-7 Date REYES - 7 assessed: 05/27/23 Feeling nervous, anxious, or on edge: 1 = Several days Not being able to stop or control worryin = Not at all Worrying too much about different things: 0 = Not at all Trouble relaxin = Not at all Being so restless that it is hard to sit still: 0 = Not at all Becoming easily annoyed or irritable: 0 = Not at all Feeling afraid as if something awful might happen: 0 = Not at all Total REYES-7 score (0-4 normal; 5-9 mild; 10-14 moderate; 15-21 severe): 1 Source: Developed by Drs. Wilton Ricks, Shaila Erickson, Kristian Smith and colleagues, with an educational evangelina from [employer]. REYES-7 Assessment Billing REYES-7 Assessment Tool: REYES-7 Assessment 26908 Review of Systems Const All systems reviewed & are unremarkable except as noted in HPI and below Eyes Reports no additional complaints, Denies change in vision and Denies other visual disturbances Card Denies chest pain at rest, Denies chest pain with activity, Denies edema, Denies irregular heart rhythm, Denies claudication, Denies dyspnea, Denies dyspnea on exertion, Denies orthopnea, Denies paroxysmal nocturnal dyspnea and Denies slow heart rate Resp Denies cough, Denies dyspnea and Denies dyspnea on exertion GI Denies abdominal pain, Denies change in bowel habits, Denies excessive flatus, Denies nausea and Denies vomiting Denies urinary incontinence, Denies urinary hesitancy and Denies urinary urgency Musc Denies abnormal gait, Denies atrophy, Denies deformity and Denies limited range of motion Skin/Breast Denies bleeding lesions, Denies changing lesions and Denies rash Neuro Denies abnormal gait, Denies behavioral changes and Denies lack of coordination Psych Denies behavioral changes Physical exam (Primary Care) Vital Signs: Last Vital Signs BP 126/70 05/27/23 14:05 BMI result Body Mass Index 33.3 Tobacco/Smoking Status: Tobacco use Status Tobacco use date assessed 05/27/23 05/27/23 14:09 Patient Tobacco Use Status Never used Tobacco 05/27/23 14:09 Tobacco use type 10/08/22 11:48 e-Cigarette/Vaping Use Never Used 05/27/23 14:09 PHQ-9: PHQ-9 Score PHQ-9: Total score 2 05/27/23 14:19 Depression Screening Interpretation: Negative Thrive Assessment: Date of Thrive Assessment Date Thrive assessed 05/27/23 05/27/23 14:09 Currently or been in a relationship where the following occur: no concerns reported Eyes General: appearance normal, both eyes and all related structures Eyelids: Yes eyelids normal Conjunctivae: conjunctivae normal Neck Neck: Yes normal visual inspection and Yes supple Resp Effort & Inspection: normal respiratory effort Auscultation: clear to auscultation bilaterally Cardio Jugular venous distension: no JVD Rate: regular rate Rhythm: regular rhythm Heart sounds: S1 normal heart sound present and S2 normal heart sound present Extrem General: Yes full ROM Office Procedures Flu Questionnaire Does the patient have a severe egg allergy?: No Immunizations flu vacc [id number] 6mos up(PF) 60 mcg(15 mcgx4)/0.5 mL IM syringe Performing Provider: Trudi Carlos MD [facility] Documented (not given) by: BOO Blake on 05/27/23 14:22 Reason Not Given: Patient Refused Assessment and Plan Assessment & Plan (1) Lumbar pain: Code(s): M54.50 - Low back pain, unspecified Plan: X-ray ordered. (2) Venous (peripheral) insufficiency: Code(s): I87.2 - Venous insufficiency (chronic) (peripheral) Plan: Referred to vascular surgery. (3) Easy bruising: Code(s): R23.3 - Spontaneous ecchymoses Plan: Labs order. (4) Class 1 obesity with body mass index (BMI) of 33.0 to 33.9 in adult: Code(s): E66.9 - Obesity, unspecified; Z68.33 - Body mass index [BMI] 33.0-33.9, adult Plan: Advised to diet and exercise to reach BMI goal less than 30. Orders: Orders Influenza [id number] Immunization Today Z23 - Encounter for immunization Vitamin D 25-OH Total Today E55.9 - Vitamin D deficiency, unspecified Lipid Panel Today E78.5 - Hyperlipidemia, unspecified, Z00.00 - Encounter for general adult medical examination without abnormal findings XR lumbar spine 2-3V Today M54.50 - Low back pain, unspecified Vitamin B12 and Folate Today E53.8 - Deficiency of other specified B group vitamins Comprehensive Mcdonough. Panel Fast Today Z00.00 - Encounter for general adult medical examination without abnormal findings Complete Blood Count Auto Diff Today E66.9 - Obesity, unspecified, Z68.32 - Body mass index [BMI] 32.0-32.9, adult Von Willebrand Factor Antigen Today R23.3 - Spontaneous ecchymoses Referrals Vascular Surgery Referral I87.2 - Venous insufficiency (chronic) (peripheral) Coding Level of Care Code Est Pt Level 4 (37813) Diagnoses Lumbar pain M54.50 Venous (peripheral) insufficiency I87.2 Easy bruising R23.3 Class 1 obesity with body mass index (BMI) of 33.0 to 33.9 in adult E66.9; Z68.33 Additional Codes REYES-7 Assessment Billing - REYES-7 Assessment Tool: REYES-7 Assessment 68453 ([id number]) Time Spent (min) 25
== END 2023-05-27 14:26 | disposition home or self-care (01) ==
PROVIDERS: Visit Provider Internal Medicine
DX: M54.50 Low back pain, unspecified (principal); E66.9 Obesity, unspecified; Z68.33 Body mass index [BMI] 33.0-33.9, adult; I87.2 Venous insufficiency (chronic) (peripheral); R23.3 Spontaneous ecchymoses
CPT/HCPCS: 99214

== ENCOUNTER 2023-06-13 08:41 | Outpatient (REF) | payer MEDICARE, MEDICAID, SELFPAY ==
--- NOTE | ~2023-06-13 | XR_ITS ---
EXAMINATION: XR LUMBOSACRAL SPINE CLINICAL INFORMATION: Lower back pain COMPARISON: 01/15/2022 TECHNIQUE: Three views of the lumbosacral spine. FINDINGS: There appears to be a chronic reduction of the lordotic curvature. The lumbar vertebra have well preserved height and alignment. Small anterior vertebral osteophytes are present at multiple levels. There is chronic mild disc space narrowing at L4-5 and L5-S1, and there appears to be mild facet arthropathy L5-S1. The sacrum and sacroiliac joints are unremarkable. No new observations compared to 01/15/2022. No vertebral endplate erosions or syndesmophyte formation. XR/XR lumbar spine 2-3V IMPRESSION: No acute abnormalities within the degenerated lumbar spine compared to 01/15/2022. There are no vertebral compression fractures.
[2023-06-13 08:55] LABS: MANUAL DIFF FLAG NO
[2023-06-13 09:18] LABS: Eosinophils Absolute Auto 0.1 X10*3/uL (0.0-0.4); Eosinophils Percent Auto 1.5 % (0-4); Hematocrit 39.4 % (37.0-47.0); Lymphocytes Absolute Auto 2.2 X10*3/uL (1.2-4.9); Lymphocytes Percent Auto 55.6 % (20-40); Mean Corpuscular Hemoglobin 29.8 pg (27.0-33.0); Mean Corpuscular Volume 90.4 fL (80.0-98.0); Mean Platelet Volume 10.5 fL (9.4-12.3); Monocytes Absolute Auto 0.2 X10*3/uL (0.1-1.2); Monocytes Percent Auto 5.8 % (2-11); Neutrophils Absolute Auto 1.4 x10*3/uL (2.0-8.3); Neutrophils Percent Auto 36.1 % (45-73); Platelet Count 282 X10*3/uL (160-400); Red Blood Count 4.36 X10*6/uL (4.20-5.50); Red Cell Distribution Width 13.5 % (11.0-16.0); White Blood Count 3.9 X10*3/uL (4.8-10.8)
[2023-06-13 10:29] LABS: Alanine Aminotransferase 21 U/L (0-31); Albumin Level 4.3 g/dL (3.5-5.0); Alkaline Phosphatase 95 U/L (39-117); Anion Gap 12 (12-20); Aspartate Amino Transferase 19 U/L (5-31); Bilirubin Total 0.4 mg/dL (0.0-1.0); Blood Urea Nitrogen 18 mg/dL (9-16); Calcium 9.6 mg/dL (8.4-10.2); Carbon Dioxide 28 mmol/L (22-29); Chloride 107 mmol/L (96-108); Cholesterol 231 mg/dL (<200); Estimated Glomerular Filt Rate 47; Glucose Fasting 102 mg/dL (60-99); HDL Cholesterol 59 mg/dL (>40); LDL Cholesterol Calculated 159 mg/dL (<100); Sodium 143 mmol/L (135-145); Total Protein 8.2 g/dL (6.5-8.0); Triglycerides 67 mg/dL (<150)
[2023-06-13 10:32] LABS: Vitamin D 25-OH Total 36.9 ng/mL (>30)
[2023-06-13 10:39] LABS: Folate 11.9 ng/mL (> or = 4.0); Vitamin B12 442 pg/mL (200-900)
[2023-06-18 12:19] LABS: Von Willebrand Factor Antigen 149 % (50-217)
== END 2023-06-13 08:42 | disposition home or self-care (01) ==
LOC: HO.XRAY 08:41
PROVIDERS: PCP Internal Medicine; Visit Provider Internal Medicine
DX: Z00.00 Encounter for general adult medical examination without abnormal findings (principal); M54.50 Low back pain, unspecified; R23.3 Spontaneous ecchymoses; E55.9 Vitamin D deficiency, unspecified; E53.8 Deficiency of other specified B group vitamins; E78.5 Hyperlipidemia, unspecified; E66.9 Obesity, unspecified; Z68.32 Body mass index [BMI] 32.0-32.9, adult
CPT/HCPCS: 36415; 72100; 80053; 80061; 82306; 82607; 82746; 85025; 85246

== ENCOUNTER 2023-06-16 09:20 | Outpatient (AMB) | payer MEDICARE, MEDICAID, SELFPAY ==
[2023-06-16 09:23] VITALS: BP 128/78; PULSE 71; O2SAT 98; BMI 36.1
--- NOTE | 2023-06-16 09:23 | A.OFFPC_ITS ---
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 Accompanied by: Self / Same As Patient Allergies No Known Allergies Allergy (Mild, Verified 06/16/23 09:38) NKA Medication List - Last Reconciled 06/16/23 by Trudi Carlos MD No Known Home Meds Tobacco use date assessed: 05/27/23 Fall risk assessment: No Falls in past year Last assessed Fall Risk: 06/16/23 Dental Screening Dental Screen Date: 06/16/23 Did you have a dental visit in the last 12 months?: No Did you have a dental problem in the last 6 months where you did not have access to dental care?: No Was dental information given to patient?: No HPI HPI Comments History of Present Illness Details This is a 68-year-old female that comes for her physical exam. Mammogram done October 2022 and was normal. Bone density done 2021 showing osteoporosis and this will be repeated this year. Colonoscopy done 2021 showing tubular adenoma. No chest pain or shortness of breath. [facility] Medical History (Updated 06/16/23 @ 09:44 by Trudi Carlos MD) Class 1 obesity with body mass index (BMI) of 32.0 to 32.9 in adult Diverticulosis Tubular adenoma Osteoporosis Physical exam Postmenopausal Screen for colon cancer Shortness of breath Venous (peripheral) insufficiency Impaired glucose tolerance Dyslipidemia Surgical History Hx of colonoscopy History of bilateral breast reduction surgery History of total abdominal hysterectomy and bilateral salpingo-oophorectomy Family History Father Diabetes Mother Diabetes Hypertension Paternal Grandmother Breast cancer Paternal Aunt Breast cancer Brother Primary cancer of bone marrow Social History (Updated 06/16/23 @ 09:41 by Trudi Carlos MD) Housing: Apartment Alcohol intake: current Alcohol intake frequency: holidays/special occasions only Alcohol type: wine Patient Tobacco Use Status: Former Tobacco user e-Cigarette/Vaping Use: Never Used Second Hand Smoke Exposure: No service: No Current occupational status: unemployed Cognitive needs: No Hearing needs: No Vision needs: Yes Questionnaire PHQ-9 Over the last 2 weeks, how often have you been bothered by any of the following problems? 1. Little interest or pleasure in doing things: not at all 2. Feeling down, depressed, or hopeless: several days 3. Trouble falling or staying asleep, or sleeping too much: not at all 4. Feeling tired or having little energy: not at all 5. Poor appetite or overeating: several days 6. Feeling bad about yourself - or that you are a failure or have let yourself or your family down: not at all 7. Trouble concentrating on things, such as reading the newspaper or watching television: not at all 8. Moving or speaking so slowly that other people could have noticed. Or the opposite - being so fidgety or restless that you have been moving around a lot more than usual: not at all 9. Thoughts that you would be better off or of hurting yourself in some way: not at all Total score: 2 Depression Screening Interpretation: Negative Depression Screening Done: Yes 64778 - PHQ-9 Billing: Yes Source: Developed by Drs. Wilton Ricks, Shaila Erickson, Kristian Smith and colleagues, with an educational evangelina from [employer]. Thrive Questionnaire Date Thrive assessed: 05/27/23 AUDIT C Alcohol Use Questionnaire (AUDIT-C) 1. How often do you have a drink containing alcohol?: Monthly or less 2. How many drinks containing alcohol do you have on a typical day when you are drinking?: 1 or 2 3. How often do you have six or more drinks on one occasion?: Never Total Score: 1 Score Reviewed/Action Taken: No REYES-7 AMB Questionnaire REYES-7 Date REYES - 7 assessed: 05/27/23 Source: Developed by Drs. Wilton Ricks, Kristian Rodríguez and colleagues, with an educational evangelina from [employer]. Review of Systems Const All systems reviewed & are unremarkable except as noted in HPI and below Eyes Reports no additional complaints, Denies change in vision and Denies other visual disturbances Card Denies chest pain at rest, Denies chest pain with activity, Denies edema, Denies irregular heart rhythm, Denies claudication, Denies dyspnea, Denies dyspnea on exertion, Denies orthopnea, Denies paroxysmal nocturnal dyspnea and Denies slow heart rate Resp Denies cough, Denies dyspnea and Denies dyspnea on exertion GI Denies abdominal pain, Denies change in bowel habits, Denies excessive flatus, Denies nausea and Denies vomiting Denies urinary incontinence, Denies urinary hesitancy and Denies urinary urgency Musc Denies abnormal gait, Denies atrophy, Denies deformity and Denies limited range of motion Skin/Breast Denies bleeding lesions, Denies changing lesions and Denies rash Neuro Denies abnormal gait, Denies behavioral changes, Denies confusion and Denies lack of coordination Psych Denies behavioral changes and Denies confusion Physical exam (Primary Care) Vital Signs: Last Vital Signs Pulse 71 06/16/23 09:23 BP 128/78 06/16/23 09:23 Pulse Ox 98 06/16/23 09:23 Oxygen Delivery Method Room Air 06/16/23 09:23 BMI result Body Mass Index 36.1 Tobacco/Smoking Status: Tobacco use Status Tobacco use date assessed 05/27/23 06/16/23 09:30 Patient Tobacco Use Status Never used Tobacco 06/16/23 09:30 Tobacco use type 10/08/22 11:48 e-Cigarette/Vaping Use Never Used 06/16/23 09:30 PHQ-9: PHQ-9 Score PHQ-9: Total score 2 06/16/23 09:30 Depression Screening Interpretation: Negative Thrive Assessment: Date of Thrive Assessment Date Thrive assessed 05/27/23 06/16/23 09:30 Const General: No confusion Orientation/consciousness: patient oriented x3 and No confusion HENMT Head: Yes normal to inspection, Yes normocephalic and Yes atraumatic Ears: external ears normal Eyes General: appearance normal, both eyes and all related structures Eyelids: Yes eyelids normal Conjunctivae: conjunctivae normal Neck Neck: Yes normal visual inspection and Yes supple Resp Effort & Inspection: normal respiratory effort Auscultation: clear to auscultation bilaterally Cardio Jugular venous distension: no JVD Rate: regular rate Rhythm: regular rhythm Heart sounds: S1 normal heart sound present and S2 normal heart sound present GI Inspection: Yes normal to inspection Palpation (GI): Soft to palpation and nontender Auscultation: normal bowel sounds Skin General skin exam: no rashes or lesions noted Neuro General: patient oriented x3, no focal motor deficits and No confusion Extrem General: Yes full ROM Psych Appearance: grossly normal Assessment and Plan Assessment & Plan (1) Physical exam: Code(s): Z00.00 - Encounter for general adult medical examination without abnormal findings Plan: Repeat in a year. Orders: Orders XR DEXA axial skeleton Today N95.9 - Unspecified menopausal and perimenopausal disorder Referrals Hematology & Oncology Referral D72.819 - Decreased white blood cell count, unspecified Coding Level of Care Code Est Pt Prev Care >65y(30141) Diagnoses Physical exam Z00.00 Time Spent (min) 32
== END 2023-06-16 09:49 | disposition home or self-care (01) ==
PROVIDERS: Visit Provider Internal Medicine
DX: Z00.00 Encounter for general adult medical examination without abnormal findings (principal)
CPT/HCPCS: 99397

== ENCOUNTER 2023-09-09 09:52 | Outpatient (REF) | payer MEDICARE, MEDICAID, SELFPAY ==
--- NOTE | ~2023-09-09 | MM_ITS ---
EXAMINATION: BONE DENSITOMETRY CLINICAL INDICATION: Unspecified menopausal and perimenopausal disorder. COMPARISON: Baseline BD dated 09/04/2021. TECHNIQUE: Using a Vtap DXA System (software version: 13.1) manufactured by [employer], dual-energy x-ray absorptiometry was performed of the lumbar spine and left hip. The images are of good technical quality. Summary results are attached. FINDINGS: LEFT FEMUR, NECK: Current: BMD 0.784 g/cm2, Z-score -0.7, T-score -1.8, osteopenia. Baseline: BMD 0.615 g/cm2. LEFT FEMUR, TOTAL: Current: BMD 0.870 g/cm2, Z-score -0.3, T-score -1.1, osteopenia, 19.3% increase from baseline (<5% change is not significant). Baseline: BMD 0.729 g/cm2. AP SPINE L1-L4: Current: BMD 0.988 g/cm2, Z-score -0.7, T-score -1.6, osteopenia, 6.6% decrease from baseline (<5% change is not significant). Baseline: BMD 1.058 g/cm2. IDENTIFIED RISK FACTORS: Early menopause, secondary osteoporosis, hysterectomy, bilateral oophorectomy. HISTORY OF FRACTURE: None listed. MEDICATIONS: Vitamin D. MM/XR DEXA axial skeleton IMPRESSION: 1. DIAGNOSIS: Osteopenia based on the lowest T-score value of -1.8 in the femoral neck applying World Health Organization criteria. 2. 10-YEAR FRACTURE RISK PREDICTION, FRAX: Major osteoporotic fracture (clinical spine, forearm, hip or shoulder) 5.6%. Hip fracture 0.8%. 3. Treatment Recommendations: NOF guidelines recommend consideration for treatment in postmenopausal women and men age 50 and older presenting with the following: -A hip or vertebral (clinical or morphometric) fracture. -T-score less than or equal to -2.5 at the femoral neck or spine after appropriate evaluation to exclude secondary causes. -Low bone mass at the hip or spine and a 10-year fracture probability by FRAX of greater than or equal to 3% for hip fracture or greater than or equal to 20% for major osteoporotic fracture based on the [place] adapted WHO algorithm. 4. Other Recommendations: All treatment decisions require clinical judgment and consideration of individual patient factors, including patient preferences, comorbidities, previous drug use, risk factors not captured in the FRAX model (e.g. frailty, falls, vitamin D deficiency, increased bone turnover, interval significant decline in bone density) and possible under or overestimation of fracture risk by FRAX. Additional medical evaluation for secondary cause of low bone mineral density may be appropriate. FUTURE SCAN RECOMMENDATION: People with diagnosed cases of osteoporosis or at high risk for fracture should have regular bone mineral density tests. For patients eligible for Medicare, routine testing is allowed once every 2 years. The testing frequency can be increased to one year for patients who have rapidly progressing disease, those who are receiving or discontinuing medical therapy to restore bone mass, or have additional risk factors.
== END 2023-09-09 09:53 | disposition home or self-care (01) ==
LOC: HO.MAMMO 09:52
PROVIDERS: PCP Internal Medicine; Visit Provider Internal Medicine
DX: Z13.820 Encounter for screening for osteoporosis (principal); Z78.0 Asymptomatic menopausal state
CPT/HCPCS: 77080

== ENCOUNTER → 2023-09-12 11:00 | Outpatient (BNV) | payer MEDICARE, MEDICAID, SELFPAY | PROVIDERS: PCP Internal Medicine; Referring Provider Internal Medicine; Visit Provider Internal Medicine | DX: D72.819 Decreased white blood cell count, unspecified (principal) | CPT/HCPCS: 99204 ==

== ENCOUNTER 2023-11-19 11:22 | Outpatient (AMB) | payer MEDICARE, MEDICAID, SELFPAY ==
--- NOTE | 2023-11-19 11:32 | MHC.OFFWIV ---
Intake Vital Signs 11/19/23 11:33 Height 5 ft 3 in Weight 190 lb BMI 33.7 BP 122/78 Blood Pressure Location Rt brachial Position Sitting Pulse 81 Pulse Source Pulse Oximeter Temp 98.3 F Temp Source Oral Pulse Oximetry (%) 98 Oxygen Delivery Method Room Air Intake Visit Reasons: EP dizzy, blurred vision/LT leg concerns/fatigue Intake Note: pt is here for left leg swelling and pain for 2 weeks, with fatigue blurred vision Patient Tobacco Use Status: Former Tobacco user Allergies No Known Allergies Allergy (Mild, Verified 11/19/23 11:34) NKA Do you need a note to return to daycare/school/sports/work: No HPI HPI Comments History of Present Illness Details Patient is a 68-year-old female here with her daughter complaining of a few different issues. First she says this morning she had an episode of dizziness were felt like the room was spinning and she had to sit down to feel better, she felt like she was going to pass out. She states she does not have blood pressure problems or diabetes. She states she did not eat anything at all yesterday but did drink 3 bottles of water, some green tea, some turmeric tea with courtney and this morning had coffee but no breakfast this morning. Her 2nd complaint is that she has blurry vision which resolved when she closes her eyes for a few minutes. Her daughter states both the dizziness and the blurry vision have been issues on and off for the last few months. She states she has been eating normally up until yesterday. Her 3rd issue is that she has bilateral leg swelling which she feels is worse on the left lower leg. She denies any injuries, she denies being on Lasix or having heart issues. She denies any recent surgeries or sedentary life style or recent travel. She states that her legs have become painful, again the left leg is worse. She denies any fevers, bug bites, nausea, vomiting, diarrhea, shortness of breath or chest pain. Her daughter states she has noticed her mother has been more tired and fatigued than usual in the last week or 2. 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 [facility] Medical History (Updated 11/19/23 @ 12:06 by Stephanie Fox PA-C) Class 1 obesity with body mass index (BMI) of 32.0 to 32.9 in adult Diverticulosis Tubular adenoma Osteoporosis Physical exam Postmenopausal Screen for colon cancer Shortness of breath Venous (peripheral) insufficiency Impaired glucose tolerance Dyslipidemia Surgical History Hx of colonoscopy History of bilateral breast reduction surgery History of total abdominal hysterectomy and bilateral salpingo-oophorectomy Family History Father Diabetes Mother Diabetes Hypertension Paternal Grandmother Breast cancer Paternal Aunt Breast cancer Brother Primary cancer of bone marrow Social History (Updated 09/12/23 @ 11:12 by Krystin Nelson) Household Members: None Housing: Apartment Alcohol intake: current Alcohol intake frequency: holidays/special occasions only Alcohol type: wine Patient Tobacco Use Status: Former Tobacco user e-Cigarette/Vaping Use: Never Used Second Hand Smoke Exposure: No service: No Current occupational status: unemployed Cognitive needs: No Hearing needs: No Vision needs: Yes Review of Systems Const All systems reviewed & are unremarkable except as noted in HPI and below Physical Exam Vital Signs: Last Vital Signs Temp 98.3 F 11/19/23 11:33 Pulse 81 11/19/23 11:33 BP 122/78 11/19/23 11:33 Pulse Ox 98 11/19/23 11:33 Oxygen Delivery Method Room Air 11/19/23 11:33 BMI result Body Mass Index 33.7 Const General: cooperative, healthy appearing, comfortable, no acute distress and well developed Orientation/consciousness: patient oriented x3 Limitations: no limitations HEENT Head: Yes normal to inspection, Yes normocephalic and Yes atraumatic Ears: hearing grossly normal bilaterally, external ears normal and TM's normal bilaterally General nose exam: Normal external nose present Face and sinus: Yes normal facial exam Eyes General: appearance normal, both eyes and all related structures Neck Neck: Yes normal visual inspection and Yes full ROM Resp Effort & Inspection: normal respiratory effort and able to speak in complete sentences Auscultation: clear to auscultation bilaterally Cardio Rate: regular rate Rhythm: regular rhythm Heart sounds: normal S1 and S2 GI Inspection: Yes normal to inspection Palpation (GI): Soft to palpation and nontender Skin General skin exam: no rashes or lesions noted Neuro General: patient oriented x3 Extrem General: Yes normal to inspection Right lower extremity: full ROM and edema (Lower extremity, negative Homans; no signs of infection) Details: non-pitting Left lower extremity: full ROM and edema (Lower extremity, negative Homans; no signs of infection) Details: non-pitting Assessment & Plan Assessment & Plan (1) Blurry vision, bilateral: Code(s): H53.8 - Other visual disturbances Plan: Vital signs are stable, glucose in the office was 91. Physical exam was relatively unremarkable except for the bilateral lower extremity swelling, negative Homans, no risk factors for a DVT and no history of a DVT. Recommended going to the emergency room for a thorough workup, she could just have a viral illness that is making her fatigued and not eating as much and be dehydrated which could have given her the blurry vision and the presyncopal feeling earlier this morning. Her constellation of symptoms are likely more than 1 etiology. Recommended if she does not find an answer today, that she should follow up with her oncologist for her leukopenia, as the oncologist noted in her last note in August. Her son and her daughter were both in the exam room with last, we had a very long discussion regarding everything and I highly recommended the emergency department but it was not clear that they were going to bring her. (2) Swelling of both lower extremities: Code(s): M79.89 - Other specified soft tissue disorders Plan: see above Plan see above Coding Level of Care Code Est Pt Level 5 (76935) Diagnoses Blurry vision, bilateral H53.8 Swelling of both lower extremities M79.89
[2023-11-19 11:33] VITALS: BP 122/78; PULSE 81; TEMP 36.8; O2SAT 98; BMI 33.7
== END 2023-11-19 12:07 | disposition home or self-care (01) ==
PROVIDERS: PCP Internal Medicine; Visit Provider Physician Assistant
DX: H53.8 Other visual disturbances (principal); M79.89 Other specified soft tissue disorders
CPT/HCPCS: 82948; 99215

== ENCOUNTER 2023-11-26 12:46 | Outpatient (AMB) | payer MEDICARE, MEDICAID, SELFPAY ==
--- NOTE | 2023-11-26 12:49 | MHC.PC.OV ---
Vital Signs 11/26/23 12:54 Height 5 ft 3 in Weight 191 lb 2 oz BMI 33.9 BP 136/72 Blood Pressure Location Lt brachial Position Sitting Pulse 92 Pulse Source Pulse Oximeter Pulse Oximetry (%) 97 Oxygen Delivery Method Room Air Intake Visit Reasons: Follow Up from Walk-in visit Pin Machine Tender Required: No Accompanied by: Son Allergies No Known Allergies Allergy (Mild, Verified 11/26/23 12:58) NKA Medication List - Last Reconciled 11/26/23 by Trudi Carlos MD calcium carbonate (Oyster Shell Calcium 500) 500 mg PO BID 90 days Tobacco use date assessed: 05/27/23 Fall risk assessment: No Falls in past year Last assessed Fall Risk: 11/26/23 Dental Screening Dental Screen Date: 06/16/23 HPI HPI Comments History of Present Illness Details This is a 68-year-old female with leukopenia that comes today accompanied by son complaining of bilateral leg swelling but more prominent on the left that has been present for over 2 years. She said that few days ago the swelling were more than usual and painful. No warmth or redness. Able to walk with no assistive device. I will order ultrasound today for the left leg and refer her to vascular surgery for her lymphedema. She also went to urgent care recently due to an episode of dizziness and blurry vision. It was really warm that day. I will refer her to Ophthalmology for blurry vision. She has not had an episode since. History of leukopenia follow by Oncology and last white blood cells in August were 4.4. [facility] Medical History (Updated 11/26/23 @ 13:19 by Trudi Carlos MD) Class 1 obesity with body mass index (BMI) of 32.0 to 32.9 in adult Diverticulosis Tubular adenoma Osteoporosis Physical exam Postmenopausal Screen for colon cancer Shortness of breath Venous (peripheral) insufficiency Impaired glucose tolerance Dyslipidemia Surgical History Hx of colonoscopy History of bilateral breast reduction surgery History of total abdominal hysterectomy and bilateral salpingo-oophorectomy Family History Father Diabetes Mother Diabetes Hypertension Paternal Grandmother Breast cancer Paternal Aunt Breast cancer Brother Primary cancer of bone marrow Social History Household Members: None Housing: Apartment Alcohol intake: current Alcohol intake frequency: holidays/special occasions only Alcohol type: wine Patient Tobacco Use Status: Former Tobacco user e-Cigarette/Vaping Use: Never Used Second Hand Smoke Exposure: No service: No Current occupational status: unemployed Cognitive needs: No Hearing needs: No Vision needs: Yes Questionnaire Thrive Questionnaire Date Thrive assessed: 05/27/23 REYES-7 AMB Questionnaire REYES-7 Date REYES - 7 assessed: 05/27/23 Source: Developed by Drs. Wilton Ricks, Shaila Erickson, Kristian Smith and colleagues, with an educational evangelina from [employer]. Review of Systems Const All systems reviewed & are unremarkable except as noted in HPI and below Card Denies chest pain at rest, Denies chest pain with activity, Denies edema, Denies irregular heart rhythm, Denies claudication, Denies dyspnea, Denies dyspnea on exertion, Denies orthopnea, Denies paroxysmal nocturnal dyspnea and Denies slow heart rate Resp Denies cough, Denies dyspnea and Denies dyspnea on exertion GI Denies abdominal pain, Denies change in bowel habits, Denies excessive flatus, Denies nausea and Denies vomiting Musc Reports joint swelling Physical exam (Primary Care) Vital Signs: Last Vital Signs Pulse 92 11/26/23 12:54 BP 136/72 11/26/23 12:54 Pulse Ox 97 11/26/23 12:54 Oxygen Delivery Method Room Air 11/26/23 12:54 BMI result Body Mass Index 33.9 BMI Assessment/Plan discussion: High BMI High, discussed plan: lifestyle, weight reduction, dietary and physical activity Tobacco/Smoking Status: Tobacco use Status Tobacco use date assessed 05/27/23 11/26/23 12:50 Patient Tobacco Use Status Former Tobacco user 11/26/23 12:50 Tobacco use type 10/08/22 11:48 e-Cigarette/Vaping Use Never Used 11/26/23 12:50 Thrive Assessment: Date of Thrive Assessment Date Thrive assessed 05/27/23 11/26/23 12:50 Resp Effort & Inspection: normal respiratory effort Auscultation: clear to auscultation bilaterally Cardio Jugular venous distension: no JVD Rate: regular rate Rhythm: regular rhythm Heart sounds: S1 normal heart sound present and S2 normal heart sound present Extrem Right lower extremity: lower leg Details: non-pitting edema Details: 1+ Left lower extremity: lower leg Details: non-pitting edema Details: 2+ Assessment and Plan Assessment & Plan (1) Left leg pain: Code(s): M79.605 - Pain in left leg Plan: Ultrasound leg ordered. (2) Lymphedema: Code(s): I89.0 - Lymphedema, not elsewhere classified Plan: Referred to vascular surgery. (3) Blurry vision, bilateral: Code(s): H53.8 - Other visual disturbances Plan: Referred to Ophthalmology. (4) Leukopenia: Code(s): D72.819 - Decreased white blood cell count, unspecified Qualifiers: Leukopenia type: unspecified Qualified Code(s): D72.819 - Decreased white blood cell count, unspecified Plan: Repeat CBC. Orders: Orders Comprehensive Met. Panel Today H53.8 - Other visual disturbances US venous duplex LE LT Today M79.605 - Pain in left leg Complete Blood Count Auto Diff Today D72.819 - Decreased white blood cell count, unspecified Referrals Vascular Surgery Referral I87.2 - Venous insufficiency (chronic) (peripheral), I89.0 - Lymphedema, not elsewhere classified Ophthalmology Referral H53.8 - Other visual disturbances Medications: New cholecalciferol (vitamin D3) 25 mcg PO DAILY 30 days 30 caps 1RF Coding Level of Care Code Est Pt Level 4 (57775) Complex EM visit Add On G2211 Diagnoses Left leg pain M79.605 Lymphedema I89.0 Blurry vision, bilateral H53.8 Leukopenia, unspecified type D72.819 Leukopenia type: unspecified Time Spent (min) 21
[2023-11-26 12:54] VITALS: BP 136/72; PULSE 92; O2SAT 97; BMI 33.9
== END 2023-11-26 13:10 | disposition home or self-care (01) ==
PROVIDERS: PCP Internal Medicine; Visit Provider Internal Medicine
DX: M79.605 Pain in left leg (principal); I89.0 Lymphedema, not elsewhere classified; H53.8 Other visual disturbances; D72.819 Decreased white blood cell count, unspecified
CPT/HCPCS: 99214; G2211

== ENCOUNTER 2023-11-26 13:50 | Outpatient (REF) | payer MEDICARE, MEDICAID, SELFPAY ==
--- NOTE | ~2023-11-26 | US_ITS ---
EXAMINATION: US VENOUS ULTRASOUND WITH DOPPLER LOWER EXTREMITY, LEFT CLINICAL INFORMATION: Pain in the left leg COMPARISON: Left lower extremity duplex on 01/15/22 TECHNIQUE: Ultrasound of the deep veins is performed from the hip to the calf with compression sonography and color and pulse Doppler assessment. Spectral analysis with color-flow imaging is performed. FINDINGS: There is normal venous compression and respiratory variation and augmented flow. The visualized common femoral vein, superficial femoral vein, profunda femoral vein, popliteal vein, and the trifurcation region shows no evidence of deep venous thrombosis. There is no significant popliteal fossa cyst. If the patient's symptoms persist, followup ultrasound in 5 days 7 days might be of value to exclude proximal propagation from a non-visualized calf vein. US/US venous duplex LE IMPRESSION: No DVT demonstrated in the left lower extremity.
== END 2023-11-26 13:51 | disposition home or self-care (01) ==
LOC: HO.US 13:50
PROVIDERS: PCP Internal Medicine; Visit Provider Internal Medicine
DX: M79.605 Pain in left leg (principal)
CPT/HCPCS: 93971

== ENCOUNTER 2024-02-10 11:34 | Outpatient (AMB) | payer MEDICARE, MEDICAID, SELFPAY ==
--- NOTE | 2024-02-10 11:36 | MHC.OFFVIS ---
Intake Visit Reasons: [facility] [place] Lymphedema Intake Note: [employer] presents for lymphedema and VV. States both legs are swollen. Left leg is worse and is painful. Right leg does not hurt. Left leg painful to the touch. Discoloration. Non diabetic , non smoker. Accompanied by: Self / Same As Patient Allergies No Known Allergies Allergy (Mild, Verified 02/10/24 11:39) NKA HPI HPI [facility] [place] referral Lymphedema: Details: Pleasant 68-year-old female patient presents for painful varicose veins. Complaints include swelling of lower extremities more so ankles, fatigue, and heaviness of the lower extremities. 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 It is noted more so in left leg. Patient denies any previous venous surgery or injections. Patient denies any history of DVT/ PE. Patient denies any history of phlebitis. Trial of compression includes - prescription compression given by primary They now present for vascular evaluation regarding their varicose veins. [facility] [place] Medical History Class 1 obesity with body mass index (BMI) of 32.0 to 32.9 in adult Diverticulosis Tubular adenoma Osteoporosis Physical exam Postmenopausal Screen for colon cancer Shortness of breath Venous (peripheral) insufficiency Impaired glucose tolerance Dyslipidemia Surgical History Hx of colonoscopy History of bilateral breast reduction surgery History of total abdominal hysterectomy and bilateral salpingo-oophorectomy Family History Father Diabetes Mother Diabetes Hypertension Paternal Grandmother Breast cancer Paternal Aunt Breast cancer Brother Primary cancer of bone marrow Social History Household Members: None Housing: Apartment Alcohol intake: current Alcohol intake frequency: holidays/special occasions only Alcohol type: wine Patient Tobacco Use Status: Former Tobacco user e-Cigarette/Vaping Use: Never Used Second Hand Smoke Exposure: No service: No Current occupational status: unemployed Cognitive needs: No Hearing needs: No Vision needs: Yes Review of Systems Const Reports as per HPI ENT Reports no additional complaints Card Denies chest pain, Denies chest pain at rest and Denies chest pain with activity Resp Denies chest congestion and Denies cough GI Reports no additional complaints Musc Details: pain over varicosities, aching of lower extremities, swelling, cramping, heaviness and tiredness, itching Denies abnormal gait Skin/Breast Reports pruritus and Denies wounds Neuro Reports no additional complaints and Denies abnormal gait Psych Denies no additional complaints Physical Exam Const General: cooperative, healthy appearing and comfortable Orientation/consciousness: oriented to person, oriented to place and oriented to time Neck Carotids: no bruits Chest Chest palpation & inspection: normal inspection of the chest and normal palpation of entire chest wall Resp Effort & Inspection: normal respiratory effort and able to speak in complete sentences Cardio Rate: regular rate Heart sounds: S1 normal heart sound present and S2 normal heart sound present Peripheral pulses: Peripheral pulses 2+ throughout GI Inspection: Yes normal to inspection Skin Other: +2 edema, left greater than right, multiple spider telangiectasias CEAP Classification C4 - skin color changes Ep - Etiology Primary As - superficial veins P - reflux General skin exam: dry skin Neuro General: oriented to person, oriented to place and oriented to time Extrem Right lower extremity: full ROM, normal capillary refill and edema Left lower extremity: full ROM, normal capillary refill and edema Psych Mental Status: mental status grossly normal Assessment & Plan Assessment & Plan (1) Varicose veins of left lower extremity with inflammation: Code(s): I83.12 - Varicose veins of left lower extremity with inflammation Category: Medical Plan: In short, the patient has evidence of venous insufficiency. I have discussed the pathophysiology with the patient. In addition I have provided informational material regarding venous disease to the patient. We have discussed conservative measures including compression, elevation, and exercise. I have also provided a handout regarding appropriate use of compression stockings and where to purchase good compression stockings as well. I have taken the liberty of ordering venous insufficiency testing with the patient. They will follow up with me after testing. The patient had an opportunity to ask questions regarding the treatment plan. All questions were answered. Imaging studies, laboratory studies and physical exam results were discussed and reviewed in detail. No major barriers to understanding were identified. The patient expressed understanding and agreement with the above treatment plan. The patient is aware they should contact our office by phone for worsening of the current condition or the appearance of new symptoms. Thank you for allowing me to participate in the vascular care of this patient. If you have any questions or concerns regarding the treatment for the above condition please do not hesitate to contact me. The office telephone contact is [phone]. This note is constructed using voice recognition software. While every effort has been made to ensure accuracy, electronic imager errors may have been included. Thank you for allowing me to participate in the care of your patient. Yours sincerely, Rogelio Anderson MD, FACS, R.P.V.I. Orders: Orders US venous duplex LE BI 1 Week I83.12 - Varicose veins of left lower extremity with inflammation Coding Level of Care Code New Pt Level 4 (97324) Diagnoses Varicose veins of left lower extremity with inflammation I83.12
== END 2024-02-10 11:55 | disposition home or self-care (01) ==
PROVIDERS: PCP Internal Medicine; Visit Provider Surgery Vascular Surgery
DX: I83.12 Varicose veins of left lower extremity with inflammation (principal)
CPT/HCPCS: 99203

== ENCOUNTER → 2024-02-10 11:34 | Outpatient (BNVA) | payer MEDICARE, OTHER, SELFPAY | PROVIDERS: PCP Internal Medicine; Visit Provider Surgery Vascular Surgery | DX: I83.12 Varicose veins of left lower extremity with inflammation (principal) | CPT/HCPCS: 99202 ==

== ENCOUNTER 2024-02-24 08:17 | Outpatient (REF) | payer MEDICARE, MEDICAID, SELFPAY ==
--- NOTE | ~2024-02-24 | US_ITS ---
EXAMINATION: US LOWER EXTREMITY VENOUS (REFLUX EXAM), BILATERAL CLINICAL INDICATION: Varicose veins of the left lower extremity COMPARISON: Venous duplex ultrasound of the left lower extremity dated 11/26/2023 TECHNIQUE: Color flow triplex imaging and compression Doppler was performed to evaluate both the deep and the superficial systems bilaterally. To evaluate the superficial system, the examination was performed in the upright position. Color-flow Doppler ultrasound and compression ultrasound were utilized. In addition, maneuvers were utilized to demonstrate reflux. FINDINGS: 1. DEEP VENOUS ULTRASOUND OF THE RIGHT LOWER EXTREMITY: Common Femoral Vein: Compressible, normal respiratory variation and augmented flow. Femoral Vein: Compressible, normal color flow and augmentation. Popliteal Vein: Compressible, normal augmentation. Deep Reflux: There is no evidence of reflux in the deep system in either the common femoral vein, superficial femoral or the popliteal vein. There is no evidence of a Krueger's cyst. 2. SUPERFICIAL ULTRASOUND WITH DOPPLER OF RIGHT LOWER EXTREMITY: GREAT SAPHENOUS VEIN: Saphenofemoral Junction: 0.5 cm; Reflux: 0 ms Proximal Thigh: 0.6 cm; Reflux: 0 ms Mid Thigh: 0.4 cm; Reflux: 0 ms Above Knee: 0.3 cm; Reflux: 0 ms At Knee: 0.3 cm; Reflux: 0 ms Below Knee: 0.3 cm; Reflux: 0 ms Mid Calf: 0.1 cm; Reflux: 564 ms Ankle: 0.1 cm; Reflux: 0 ms DUPLICATED MEDIAL GREAT SAPHENOUS VEIN: Saphenofemoral Junction: 0.3 cm; Reflux: 0 ms Mid Thigh: 0.2 cm; Reflux: 0 ms SMALL SAPHENOUS VEIN: Saphenopopliteal Junction: 0.3 cm; Reflux: 0 ms Proximal: 0.2 cm; Reflux: 0 ms Distal: 0.1 cm; Reflux: 0 ms PERFORATORS: Location: Mid calf Size: 0.2; Reflux: 0 ms VARICOSITIES: Location: None imaged 3. DEEP VENOUS ULTRASOUND OF THE LEFT LOWER EXTREMITY: Common Femoral Vein: Compressible, normal respiratory variation and augmented flow. Femoral Vein: Compressible, normal color flow and augmentation. Popliteal Vein: Compressible, normal augmentation. Deep Reflux: There is no evidence of reflux in the deep system in either the common femoral vein, superficial femoral or the popliteal vein. There is no evidence of a Krueger's cyst. 4. SUPERFICIAL ULTRASOUND WITH DOPPLER OF LEFT LOWER EXTREMITY: GREAT SAPHENOUS VEIN: Saphenofemoral Junction: 0.7 cm; Reflux: 0 ms Proximal Thigh: 0.5 cm; Reflux: 0 ms Mid Thigh: 0.3 cm; Reflux: 0 ms Above Knee: 0.2 cm; Reflux: . ms At Knee: 0.2 cm; Reflux: 0 ms Below Knee: 0.1 cm; Reflux: 0 ms Mid Calf: 0.1 cm; Reflux: 0 ms Ankle: 0.1 cm; Reflux: 0 ms DUPLICATED MEDIAL GREAT SAPHENOUS VEIN: Saphenofemoral Junction: 0.2 cm; Reflux: 0 ms Mid Thigh: Not visualized SMALL SAPHENOUS VEIN: Saphenopopliteal Junction: 0.3 cm; Reflux: 0 ms Proximal: 0.2 cm; Reflux: 0 ms Distal: 0.1 cm; Reflux: 0 ms PERFORATORS: Location: Mid thigh Size: 0.1; Reflux: 0 ms Location: Mid calf Size: 0.2; Reflux: 0 ms VARICOSITIES: Location: Proximal SSV Size: 0.3; Reflux: 2156 ms US/US venous duplex LE BI IMPRESSION: 1. No evidence of deep venous thrombosis or deep venous reflux. 2. Focal incompetence of the right great saphenous vein at the level of the mid calf with reflux measuring 564 ms. The remainder of the right great saphenous vein above and below this level is competent. 3. Competent left great saphenous vein and bilateral small saphenous veins. 4. One refluxing varicose vein in the left proximal calf with diameter of 3 mm and reflux measuring 2156 ms. Electronically signed by: Najma House MD 02/24/2024 10:08 AM EDT
== END 2024-02-24 08:18 | disposition home or self-care (01) ==
LOC: HO.US 08:17
PROVIDERS: PCP Internal Medicine; Visit Provider Surgery Vascular Surgery
DX: I83.12 Varicose veins of left lower extremity with inflammation (principal)
CPT/HCPCS: 93970

== ENCOUNTER 2024-03-04 15:15 | Outpatient (AMB) | payer MEDICARE, MEDICAID, SELFPAY ==
--- NOTE | 2024-03-04 15:19 | A.OFFVIS_ITS ---
Intake Visit Reasons: Follow up [facility] 02/24/24 Intake Note: Patient presents for follow up [facility]. No complaints. Accompanied by: Self / Same As Patient Allergies No Known Allergies Allergy (Mild, Verified 03/04/24 15:20) NKA HPI HPI Follow up [facility] 02/24/24: Details: Very pleasant 68-year-old female presents for follow-up regarding lower extremity swelling. She reports that it is more so in her left knee and foot. She has undergone venous insufficiency testing. She now presents for follow-up. She has had no interval changes. [facility] Medical History Class 1 obesity with body mass index (BMI) of 32.0 to 32.9 in adult Diverticulosis Tubular adenoma Osteoporosis Physical exam Postmenopausal Screen for colon cancer Shortness of breath Venous (peripheral) insufficiency Impaired glucose tolerance Dyslipidemia Surgical History Hx of colonoscopy History of bilateral breast reduction surgery History of total abdominal hysterectomy and bilateral salpingo-oophorectomy Family History Father Diabetes Mother Diabetes Hypertension Paternal Grandmother Breast cancer Paternal Aunt Breast cancer Brother Primary cancer of bone marrow Social History Household Members: None Housing: Apartment Alcohol intake: current Alcohol intake frequency: holidays/special occasions only Alcohol type: wine Patient Tobacco Use Status: Former Tobacco user e-Cigarette/Vaping Use: Never Used Second Hand Smoke Exposure: No service: No Current occupational status: unemployed Cognitive needs: No Hearing needs: No Vision needs: Yes Review of Systems Const All systems reviewed & are unremarkable except as noted in HPI and below Reports no additional complaints ENT Reports Normal hearing present Card Denies chest pain, Denies chest pain at rest, Denies chest pain with activity and Denies pedal edema Resp Denies cough GI Denies abdominal pain Musc Denies abnormal gait, Denies muscle cramps and Denies radiating pain into limb Skin/Breast Denies skin ulcer and Denies wounds Neuro Reports Normal hearing present and Denies abnormal gait Psych Reports no additional complaints Physical Exam Const General: cooperative, healthy appearing and comfortable Orientation/consciousness: oriented to person, oriented to place and oriented to time HEENT Head: Yes normal to inspection Neck Neck: Yes normal visual inspection Carotids: no bruits Chest Chest palpation & inspection: normal inspection of the chest Resp Effort & Inspection: normal respiratory effort and able to speak in complete sentences Auscultation: clear to auscultation bilaterally, no crackles, no rales, no rhonchi and no wheezes Cardio Rate: regular rate Rhythm: regular rhythm Heart sounds: S1 normal heart sound present and S2 normal heart sound present Bruits: no carotid bruits Peripheral pulses: Peripheral pulses 2+ throughout GI Inspection: Yes normal to inspection Skin Wounds: no wounds Hair: normal Neuro General: oriented to person, oriented to place and oriented to time Cranial nerves: Yes CN's II-XII intact bilaterally and Yes Normal hearing present Cognition (Neuro): normal cognition Motor exam (neuro): 5/5 motor strength present throughout Extrem Other: venous exam: No significant superficial varicosities or spider telangiectasias, minimal edema General: No clubbing, No cyanosis and No edema Psych Appearance: grossly normal Mental Status: mental status grossly normal Speech and movement: Normal speech and movement present Results Reviewed Results Reviewed: Brief summary of venous insufficiency testing is as follows: right great saphenous vein: negative right small saphenous vein: negative right accessory vein: none present left great saphenous vein: negative left small saphenous vein: negative left accessory vein: none present Please note there is no evidence of any venous aneurysms or significant tortuosity Assessment & Plan Assessment & Plan (1) Lymphedema: Code(s): I89.0 - Lymphedema, not elsewhere classified Category: Medical Plan: In short patient is negative for any significant venous insufficiency. She does have an element of lymphedema but I do think it is rather mild. At the current time would continue with conservative measures including compression elevation and exercise. Should it persist may require lymphedema pumps. She will follow up with us on an as-needed basis. Thank you for allowing us to assist in her care. If there are any questions or concerns please do not hesitate to contact us. Coding Level of Care Code Est Pt Level 4 (73912) Diagnoses Lymphedema I89.0
== END 2024-03-04 15:27 | disposition home or self-care (01) ==
PROVIDERS: PCP Internal Medicine; Visit Provider Surgery Vascular Surgery
DX: I89.0 Lymphedema, not elsewhere classified (principal)
CPT/HCPCS: 99214

== ENCOUNTER → 2024-03-04 15:15 | Outpatient (BNVA) | payer MEDICARE, MEDICAID, SELFPAY | PROVIDERS: PCP Internal Medicine; Visit Provider Surgery Vascular Surgery | DX: I89.0 Lymphedema, not elsewhere classified (principal) | CPT/HCPCS: 99212 ==

== ENCOUNTER → 2024-06-17 08:37 | Outpatient (BNVA) | payer MEDICARE, MEDICAID, SELFPAY | PROVIDERS: PCP Internal Medicine; Visit Provider Internal Medicine | DX: Z00.00 Encounter for general adult medical examination without abnormal findings (principal); Z23 Encounter for immunization; R23.3 Spontaneous ecchymoses; I87.2 Venous insufficiency (chronic) (peripheral); I89.0 Lymphedema, not elsewhere classified | CPT/HCPCS: 90471; 90677; 96127; 99212 ==

== ENCOUNTER 2024-07-30 10:34 | Outpatient (REF) | payer MEDICARE, MEDICAID, SELFPAY | END 2024-07-30 10:35 | disposition home or self-care (01) | LOC: HO.MAMMO 10:34 | PROVIDERS: PCP Internal Medicine; Visit Provider Internal Medicine | DX: Z12.31 Encounter for screening mammogram for malignant neoplasm of breast (principal) | CPT/HCPCS: 77063; 77067 ==

== ENCOUNTER → 2024-07-30 10:45 | Outpatient (BNV) | payer MEDICARE, MEDICAID, SELFPAY | PROVIDERS: PCP Internal Medicine; Visit Provider Internal Medicine | DX: Z12.31 Encounter for screening mammogram for malignant neoplasm of breast (principal) | CPT/HCPCS: 77063; 77067 ==

== ENCOUNTER 2024-09-02 09:44 | Outpatient (AMB) | payer MEDICARE, MEDICAID, SELFPAY ==
--- NOTE | 2024-09-02 09:50 | A.OFFVIS_ITS ---
Intake Visit Reasons: follow up for /lymphedema Intake Note: Patient states she is having discoloration on both legs. States she has pain behind her right knee. Also leg swelling and tingling. Accompanied by: Self / Same As Patient Allergies No Known Allergies Allergy (Mild, Verified 09/02/24 09:54) NKA HPI HPI follow up for /lymphedema: Details: The patient is a 69-year-old female presenting for a follow-up concerning venous insufficiency. P patient continues to experiences pain in her left lower extremity, focusing on both the knee and the pretibial surface. She reports continuous lower extremity pain. She now presents for follow-up with venous insufficiency testing. [facility] Medical History Class 1 obesity with body mass index (BMI) of 33.0 to 33.9 in adult Class 1 obesity with body mass index (BMI) of 32.0 to 32.9 in adult Diverticulosis Tubular adenoma Osteoporosis Physical exam Postmenopausal Screen for colon cancer Shortness of breath Venous (peripheral) insufficiency Impaired glucose tolerance Dyslipidemia Surgical History Hx of colonoscopy History of bilateral breast reduction surgery History of total abdominal hysterectomy and bilateral salpingo-oophorectomy Family History Father Diabetes Mother Diabetes Hypertension Paternal Grandmother Breast cancer Paternal Aunt Breast cancer Brother Primary cancer of bone marrow Social History Household Members: None Housing: Apartment Alcohol intake: current Alcohol intake frequency: holidays/special occasions only Alcohol type: wine Patient Tobacco Use Status: Former Tobacco user e-Cigarette/Vaping Use: Never Used Second Hand Smoke Exposure: No service: No Current occupational status: unemployed Cognitive needs: No Hearing needs: No Vision needs: Yes Review of Systems Const All systems reviewed & are unremarkable except as noted in HPI and below Reports no additional complaints ENT Reports Normal hearing present Card Denies chest pain, Denies chest pain at rest, Denies chest pain with activity and Denies pedal edema Resp Denies cough GI Denies abdominal pain Musc Denies abnormal gait, Denies muscle cramps and Denies radiating pain into limb Skin/Breast Denies skin ulcer and Denies wounds Neuro Reports Normal hearing present and Denies abnormal gait Psych Reports no additional complaints Physical Exam Const General: cooperative, healthy appearing and comfortable Orientation/consciousness: oriented to person, oriented to place and oriented to time HEENT Head: Yes normal to inspection Neck Neck: Yes normal visual inspection Carotids: no bruits Chest Chest palpation & inspection: normal inspection of the chest Resp Effort & Inspection: normal respiratory effort and able to speak in complete sentences Auscultation: clear to auscultation bilaterally, no crackles, no rales, no rhonchi and no wheezes Cardio Other: Palpable dorsalis pedis pulses bilaterally Rate: regular rate Rhythm: regular rhythm Heart sounds: S1 normal heart sound present and S2 normal heart sound present Bruits: no carotid bruits Peripheral pulses: Peripheral pulses 2+ throughout GI Inspection: Yes normal to inspection Skin Wounds: no wounds Hair: normal Neuro General: oriented to person, oriented to place and oriented to time Cranial nerves: Yes CN's II-XII intact bilaterally and Yes Normal hearing present Cognition (Neuro): normal cognition Motor exam (neuro): 5/5 motor strength present throughout Extrem Other: venous exam: No significant superficial varicosities or spider telangiectasias, minimal edema General: No clubbing, No cyanosis and No edema Psych Appearance: grossly normal Mental Status: mental status grossly normal Speech and movement: Normal speech and movement present Results Reviewed Results Reviewed: Brief summary of venous insufficiency testing is as follows: right great saphenous vein: negative right small saphenous vein: negative right accessory vein: none present left great saphenous vein: negative left small saphenous vein: negative left accessory vein: none present Please note there is no evidence of any venous aneurysms or significant tortuosity Assessment & Plan Assessment & Plan (1) Left leg pain: Code(s): M79.605 - Pain in left leg Category: Medical Plan: I discussed with the patient the nature of her venous insufficiency testing and the negative results. We reviewed the persistent left lower extremity pain, noting the location as being primarily in the knee and pretibial surface, and the presence of palpable arterial pulses. I informed the patient about the referral to pain management for further evaluation and appropriate treatment of her pain. The benefits of assessing the pain with a specialist include targeted interventions and achieving symptom relief. Risks and expectations were e xplained, and the patient consented to this course of action. She seems stable from a vascular standpoint as her venous testing was negative and she has palpable arterial pulses. She will follow up with us on an as-needed basis. Thank you for allowing us to assist in her care. Orders: Referrals Pain Management Referral M79.605 - Pain in left leg Coding Level of Care Code Est Pt Level 4 (22474) Diagnoses Left leg pain M79.605
== END 2024-09-02 10:25 | disposition home or self-care (01) ==
LOC: HO.HVS 09:44
PROVIDERS: PCP Internal Medicine; Visit Provider Surgery Vascular Surgery
DX: M79.605 Pain in left leg (principal)
CPT/HCPCS: 99214

== ENCOUNTER → 2024-09-02 09:44 | Outpatient (BNVA) | payer MEDICARE, MEDICAID, SELFPAY | PROVIDERS: PCP Internal Medicine; Visit Provider Surgery Vascular Surgery | DX: M79.605 Pain in left leg (principal) | CPT/HCPCS: 99212 ==

== ENCOUNTER 2024-11-24 16:38 | Outpatient (AMB) | payer MEDICARE, MEDICAID, SELFPAY ==
--- NOTE | 2024-11-24 16:49 | A.OFFPC_ITS ---
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 Accompanied by: Self / Same As Patient Allergies No Known Allergies Allergy (Mild, Verified 11/24/24 17:13) NKA Medication List - Last Reconciled 11/24/24 by Trudi Carlos MD calcium carbonate (Oyster Shell Calcium 500) 500 mg PO BID 90 days cholecalciferol (vitamin D3) 25 mcg PO DAILY 90 days [compression stockings As directed] Tobacco use date assessed: 11/24/24 Fall risk assessment: No Falls in past year Last assessed Fall Risk: 11/24/24 Dental Screening Dental Screen Date: 11/24/24 Did you have a dental visit in the last 12 months?: No Did you have a dental problem in the last 6 months where you did not have access to dental care?: No Was dental information given to patient?: Patient has dentist HPI HPI Comments History of Present Illness Details The patient is a 69-year-old female presenting with hand inflammation and venous insufficiency. She reports inflammation primarily in the wrist area. The patient has a history of venous insufficiency and was previously evaluated by vascular surgery at [facility]. She is seeking a second opinion regarding this condition. She has a history of dyslipidemia, with the last cholesterol level recorded at 231 mg/dL last year. A lipid panel is planned to reassess her cholesterol levels. The patient reports easy bruising and fatigue. Her last hemoglobin level was 13 g/dL, and her white blood cell count was 4.4 x 10^9/L, which is slightly low. These tests will be repeated to monitor her condition. She has impaired glucose tolerance, with a fasting blood glucose level of 102 mg/dL and a random blood glucose level of 121 mg/dL recorded last year. These levels will be reassessed to monitor her glucose tolerance. The patient experiences swelling in the legs, attributed to lymphedema. She also has a systolic murmur, prompting the need for an echocardiogram. She has osteopenia, for which she takes calcium with vitamin D. Her last DEXA scan was in August 2023, and the next is scheduled for 2025. The patient denies any chest pain or dyspnea. She is obese and has been advised to follow a diet and exercise regimen. [facility] Medical History (Updated 11/24/24 @ 20:44 by Trudi Carlos MD) Class 1 obesity with body mass index (BMI) of 33.0 to 33.9 in adult Class 1 obesity with body mass index (BMI) of 32.0 to 32.9 in adult Diverticulosis Tubular adenoma Osteoporosis Physical exam Postmenopausal Screen for colon cancer Shortness of breath Venous (peripheral) insufficiency Impaired glucose tolerance Dyslipidemia Surgical History Hx of colonoscopy History of bilateral breast reduction surgery History of total abdominal hysterectomy and bilateral salpingo-oophorectomy Family History Father Diabetes Mother Diabetes Hypertension Paternal Grandmother Breast cancer Paternal Aunt Breast cancer Brother Primary cancer of bone marrow Social History Household Members: None Housing: Apartment Alcohol intake: current Alcohol intake frequency: holidays/special occasions only Alcohol type: wine Patient Tobacco Use Status: Former Tobacco user e-Cigarette/Vaping Use: Never Used Second Hand Smoke Exposure: No service: No Current occupational status: unemployed Cognitive needs: No Hearing needs: No Vision needs: Yes Questionnaire Thrive Questionnaire Date Thrive assessed: 05/27/23 REYES-7 AMB Questionnaire REYES-7 Date REYES - 7 assessed: 06/17/24 Source: Developed by Drs. Wilton Ricks, Shaila Erickson, Kristian Smith and colleagues, with an educational evangelina from [employer]. Review of Systems Const All systems reviewed & are unremarkable except as noted in HPI and below Reports fatigue Card Denies chest pain at rest, Denies chest pain with activity, Denies edema, Denies irregular heart rhythm, Denies claudication, Reports leg edema, Denies dyspnea, Denies dyspnea on exertion, Denies orthopnea, Denies paroxysmal nocturnal dyspnea and Denies slow heart rate Resp Denies cough, Denies dyspnea and Denies dyspnea on exertion GI Denies abdominal pain, Denies change in bowel habits, Denies excessive flatus, Denies nausea and Denies vomiting Denies urinary incontinence, Denies urinary hesitancy and Denies urinary urgency Musc Reports joint swelling Neuro Denies behavioral changes and Denies lack of coordination Psych Denies behavioral changes Endo Reports fatigue Js/Lymph Reports easy bruising Physical exam (Primary Care) Vital Signs: Last Vital Signs BP 132/70 11/24/24 16:50 BMI result Body Mass Index 34.2 BMI Assessment/Plan discussion: High BMI High, discussed plan: lifestyle, weight reduction, dietary and physical activity Tobacco/Smoking Status: Tobacco use Status Tobacco use date assessed 11/24/24 11/24/24 16:57 Patient Tobacco Use Status Former Tobacco user 11/24/24 16:57 Tobacco use type 10/08/22 11:48 e-Cigarette/Vaping Use Never Used 11/24/24 16:57 Thrive Assessment: Date of Thrive Assessment Date Thrive assessed 05/27/23 11/24/24 16:57 Resp Effort & Inspection: normal respiratory effort Auscultation: clear to auscultation bilaterally Cardio Jugular venous distension: no JVD Rate: regular rate Rhythm: regular rhythm Heart sounds: Murmur heart sound present systolic Extrem General: Yes full ROM Coding Level of Care Code Est Pt Level 4 (70656) Complex EM visit Add On G2211 Diagnoses Venous (peripheral) insufficiency I87.2 Systolic murmur R01.1 Easy bruising R23.3 Dyslipidemia E78.5 Impaired glucose tolerance R73.02 Inflammation around wrist M77.20 Lymphedema I89.0 Osteopenia M85.80 Time Spent (min) 23 Assessment & Plan Assessment & Plan (1) Venous (peripheral) insufficiency: Code(s): I87.2 - Venous insufficiency (chronic) (peripheral) Category: Medical (2) Systolic murmur: Code(s): R01.1 - Cardiac murmur, unspecified Category: Medical (3) Easy bruising: Code(s): R23.3 - Spontaneous ecchymoses Category: Medical (4) Dyslipidemia: Code(s): E78.5 - Hyperlipidemia, unspecified Category: Medical (5) Impaired glucose tolerance: Code(s): R73.02 - Impaired glucose tolerance (oral) Category: Medical (6) Inflammation around wrist: Code(s): M77.20 - Periarthritis, unspecified wrist Category: Medical (7) Lymphedema: Code(s): I89.0 - Lymphedema, not elsewhere classified Category: Medical (8) Osteopenia: Code(s): M85.80 - Other specified disorders of bone density and structure, unspecified site Category: Medical Plan The patient will undergo a lipid panel to reassess her cholesterol levels, given her history of dyslipidemia with a previous cholesterol level of 231 mg/dL. A CBC will be ordered to evaluate her easy bruising and monitor her hemoglobin and white blood cell count, which were previously 13 g/dL and 4.4 x 10^9/L, respectively. Her impaired glucose tolerance will be monitored with repeat fasting and random blood glucose tests, with previous levels recorded at 102 mg/dL and 121 mg/dL. An echocardiogram is planned to assess the systolic murmur noted during the visit. The patient is advised to continue taking calcium with vitamin D for osteopenia, with the next DEXA scan scheduled for 2025. She is encouraged to follow a diet and exercise regimen to address obesity. Orders: Orders Vitamin B12 and Folate Today E53.8 - Deficiency of other specified B group vitamins Lipid Panel Today E78.5 - Hyperlipidemia, unspecified C Reactive Protein Today M77.20 - Periarthritis, unspecified wrist Erythrocyte Sedimentation Rate Today Z68.36 - Body mass index [BMI] 36.0-36.9, adult CA echo transthoracic complete Today R01.1 - Cardiac murmur, unspecified Vitamin D 25-OH Total Today E55.9 - Vitamin D deficiency, unspecified Complete Blood Count Auto Diff Today D64.9 - Anemia, unspecified Comprehensive [place]. Panel Fast Today R73.02 - Impaired glucose tolerance (oral) Thyroid Stimulating Hormone Today Z68.36 - Body mass index [BMI] 36.0-36.9, a dult Referrals Vascular Surgery Referral I87.2 - Venous insufficiency (chronic) (peripheral) Medications: Refilled calcium carbonate (Oyster Shell Calcium 500) 500 mg PO BID 180 tabs 1RF 90 days
[2024-11-24 16:50] VITALS: BP 132/70; BMI 34.2
== END 2024-11-24 17:41 | disposition home or self-care (01) ==
PROVIDERS: PCP Internal Medicine; Visit Provider Internal Medicine
DX: I87.2 Venous insufficiency (chronic) (peripheral) (principal); R01.1 Cardiac murmur, unspecified; R23.3 Spontaneous ecchymoses; E78.5 Hyperlipidemia, unspecified; R73.02 Impaired glucose tolerance (oral); M00-M99 Diseases of the musculoskeletal system and connective tissue; I89.0 Lymphedema, not elsewhere classified; M85.80 Other specified disorders of bone density and structure, unspecified site

== ENCOUNTER → 2024-11-24 16:38 | Outpatient (BNVA) | payer MEDICARE, MEDICAID, SELFPAY | PROVIDERS: PCP Internal Medicine; Visit Provider Internal Medicine | DX: I87.2 Venous insufficiency (chronic) (peripheral) (principal); R01.1 Cardiac murmur, unspecified; R23.3 Spontaneous ecchymoses; E78.5 Hyperlipidemia, unspecified; R73.02 Impaired glucose tolerance (oral); M00-M99 Diseases of the musculoskeletal system and connective tissue; I89.0 Lymphedema, not elsewhere classified; M85.80 Other specified disorders of bone density and structure, unspecified site | CPT/HCPCS: 99212 ==

== ENCOUNTER 2024-11-25 08:09 | Outpatient (REF) | payer MEDICARE, MEDICAID, SELFPAY ==
[2024-11-25 08:21] LABS: MANUAL DIFF FLAG NO
[2024-11-25 08:58] LABS: Hematocrit 36.0 % (37.0-47.0); Hemoglobin 11.7 g/dl (12.0-16.0); Imm Gran Abs Auto 0.01 X10*3/uL (0.00-0.03); Imm Gran Pct Auto 0.2 % (0.0-0.4); Lymphocytes Absolute Auto 2.2 X10*3/uL (1.2-4.9); Mean Corpuscular HGB Conc 32.5 g/dl (31.0-35.0); Mean Corpuscular Hemoglobin 29.8 pg (27.0-33.0); Mean Corpuscular Volume 91.6 fL (80.0-98.0); NRBC Abs Auto 0.000 X10*3/uL (0.0-0.012); NRBC Pct Auto 0.0 /100WBC (0.0-0.2); Platelet Count 250 X10*3/uL (160-400); Red Blood Count 3.93 X10*6/uL (4.20-5.50); White Blood Count 4.4 X10*3/uL (4.8-10.8)
[2024-11-25 09:45] LABS: Alanine Aminotransferase 22 U/L (0-31); Albumin Level 4.3 g/dL (3.5-5.0); Alkaline Phosphatase 87 U/L (39-117); Anion Gap 10 (12-20); Aspartate Amino Transferase 22 U/L (5-31); Blood Urea Nitrogen 15 mg/dL (9-16); Calcium 9.7 mg/dL (8.4-10.2); Carbon Dioxide 28 mmol/L (22-29); Chloride 109 mmol/L (96-108); Cholesterol 237 mg/dL (<200); Estimated Glomerular Filt Rate 46; HDL Cholesterol 59 mg/dL (>40); Potassium 4.5 mmol/L (3.3-5.1); Sodium 142 mmol/L (135-145); Total Protein 7.7 g/dL (6.5-8.0); Triglycerides 68 mg/dL (<150)
[2024-11-25 09:46] LABS: Thyroid Stimulating Hormone 1.75 uIU/mL (0.32-4.0)
[2024-11-25 09:56] LABS: Folate 9.2 ng/mL (> or = 4.0); Vitamin B12 574 pg/mL (200-900)
== END 2024-11-25 08:10 | disposition home or self-care (01) ==
LOC: HO.LAB 08:09
PROVIDERS: PCP Internal Medicine; Visit Provider Internal Medicine
DX: M81.0 Age-related osteoporosis without current pathological fracture (principal); D72.819 Decreased white blood cell count, unspecified; E55.9 Vitamin D deficiency, unspecified; E53.8 Deficiency of other specified B group vitamins; E78.5 Hyperlipidemia, unspecified; M00-M99 Diseases of the musculoskeletal system and connective tissue; Z68.36 Body mass index [BMI] 36.0-36.9, adult; D64.9 Anemia, unspecified
CPT/HCPCS: 36415; 80053; 80061; 82306; 82607; 82746; 84443; 85025; 85652; 86140

== ENCOUNTER → 2024-12-23 13:45 | Outpatient (REF) | payer MEDICARE, MEDICAID, SELFPAY ==
--- NOTE | 2024-12-23 13:48 | CA_ITS ---
Transthoracic Echocardiogram Patient (Last, First, Middle): Tiffanie King, Gender: Female Date of : 1955 Age: 69 Procedure Date: 12/23/2024 Procedure Type: Transthoracic Echocardiogram Location: OP Height: 160.02 cm Weight: 87.54 kg BSA: 1.90 m2 Heart Rate: bpm BP: 132 / 70 mmHg Internet Technology Manager: IRENA Referring MD: Trudi Carlos MD Symptoms: R01.1 - Cardiac murmur, unspecified Study Quality: Adequate with contrast ECG Rhythm: Sinus Conclusions: - The left ventricular systolic function is normal. The calculated ejection fraction is 63% by biplane method. - No obvious valvular pathology seen on this study. Findings Procedure Information Contrast agent, definity, is being given per protocol without apparent complications. Left Ventricle Normal left ventricular cavity size. There is normal left ventricular wall thickness. The left ventricular systolic function is normal. The calculated ejection fraction is 63% by biplane method. There is no evidence of regional wall motion abnormalities. Diastolic function is normal for age. Right Ventricle Normal right ventricular cavity size and systolic function. Atria Both atria are normal in size. Aortic Valve There is a normal trileaflet aortic valve. There is no aortic valve stenosis. There is no aortic valve regurgitation. Mitral Valve The mitral valve appears normal. There is no mitral valve regurgitation. There is no mitral valve stenosis. Pulmonic Valve The pulmonic valve is likely normal. Tricuspid Valve There is trace tricuspid valve regurgitation. There is no evidence of pulmonary hypertension. Great Vessels The asc aorta is normal in size. Venous The inferior vena cava is normal in size and collapses greater than 50% with inspiration. Pericardium/Pleural There is no evidence of pericardial effusion. Prior Study Comparison No prior study available for comparison. Recommendations, Care & Conclusions No obvious valvular pathology seen on this study. Measurements 2D Linear Measurements IVSd: 1.01 0.6-0.9/0.6-1.0 cm LVIDd: 3.21 3.9-5.3/4.2-5.9 cm LVIDd Index: 1.69 2.4-3.2/2.2-3.1 cm/m2 LVIDs: 2.16 2.0-3.6 cm LVPWd: 0.95 0.7-1.1 cm LA Diam: 3.20 2.7-3.8/3.0-4.0 cm LAIDs Index: 1.68 1.5-2.3 cm/m2 LV Mass: 109.32 67-162/88-224 g LV Mass Index: 57.54 43-95/49-115 g/m2 LVOT Diam: 2.10 3.0+(-)1.3 cm 2D Systolic Function EF 4C: 57.50 >55% EF 2C: 62.60 >55% EF BiP: 62.70 >55% Mitral Valve MV Pk E: 0.75 MV PK A: 0.52 MV Decel Time: 214.00 E/A: 1.40 E'Lateral: 11.30 E'Medial: 6.96 E/E' Med: 10.80 E/E' Lat: 6.60 PHT: 63.00 MVA PHT: 3.49 Decel [place]: 3.51 Aortic Valve AoV Pk Ayo: 1.09 AoV Mn Ayo: 0.82 AoV VTI: 0.27 AoV Pk Grad: 5.00 Aov Mn Grad: 3.00 ELVIE Cont.VTI: 2.48 LVOT LVOT Pk Ayo: 0.95 LVOT Mn Ayo: 0.63 LVOT VTI: 0.20 LVOT Pk Grad: 4.00 LVOT Mn Grad: 2.00 LVOT Diam: 2.10 LVOT Area: 3.46 Diastolic Function MV Pk E: 0.75 MV Pk A: 0.52 E/A: 1.40 E'Medial: 6.96 E/E' Med: 10.80 E' Laterial: 11.30 E/E' Lat: 6.60 Right Ventricle TAPSE (mm): 19.40 TVS' Ayo: 10.80 Tricuspid Valve RA Press: 3.00 Great Vessels Aorta Sinus of Valsalva: 2.75 2.0-3.[address] [place]: 2.09 1.7-3.4 cm Ao Asc: 2.90 2.1-3.4 cm Updated in Other Vendor System with Status of Final Sukumar Angelo MD electronically signed on 12/25/2024 8:59:03 AM with status of Final
== END ==
LOC: HO.CARD 13:45
PROVIDERS: PCP Internal Medicine; Visit Provider Internal Medicine
DX: R01.1 Cardiac murmur, unspecified (principal)
CPT/HCPCS: 93306; Q9957

== ENCOUNTER → 2024-12-23 13:48 | Outpatient (BNV) | payer MEDICARE, MEDICAID, SELFPAY | PROVIDERS: PCP Internal Medicine; Visit Provider Internal Medicine | DX: R01.1 Cardiac murmur, unspecified (principal) | CPT/HCPCS: 93306 ==